=== PATIENT | female | born 1955 | race Caucasian/White ===

== ENCOUNTER 2017-03-08 08:15 | Inpatient (IN) | payer MEDICARE, MEDICAID ==
--- OUTSIDE RECORDS SUMMARY | 2017-03-08 08:26 | XMS REPORT ---
:1955 External Reference #:[id number] Author Organization [employer] Address [address] [address] Phone [phone] Care Team Providers Name Role Phone Trip Castillo MD Primary Care Physician Unavailable Payers Type Date Identification Numbers Payment Provider Subscriber Medicare Primary Policy Number: [id number] Medicare Kelley Paul PayID: [id number] [address] [place] [address] [employer] Policy Number: [id number] Medicaid Kelley Paul Group Name: 1 1 [address] PayID: [id number] [place] [address] Commercial Effective: 2016 Policy Number: [id number] Maikel Paul Expires: 2016 PayID: [id number] [address] [place] [address] Commercial Expires: 2016 Policy Number: Total Care/Scott Paul [id number] [facility] PayID: [id number] [address] [address] [place] [address] Commercial Expires: 2016 Policy Number: Total Care/Scott Paul [id number] [facility] PayID: [id number] [address] [address] [place] [address] Problems Date Description Provider Status Onset: 02/09/2012 Prinzmetal angina Sundeep Jarquin M.D. Active Onset: 02/09/2012 Benign essential hypertension Sundeep Jarquin M.D. Active Onset: 02/09/2012 Type 2 diabetes mellitus Sundeep Jarquin M.D. Active Onset: 02/09/2012 Electrocardiogram abnormal Snudeep Jarquin M.D. Active Onset: 04/24/2012 Coronary arteriosclerosis Sundeep Jarquin M.D. Active Onset: 04/24/2012 Morbid obesity Sundeep Jarquin M.D. Active Onset: 11/09/2013 Chest pain Sundeep Jarquin M.D. Active Onset: 04/29/2015 Essential hypertension Sundeep Jarquin M.D. Active Onset: 07/31/2015 Disturbance in sleep behavior Lasha Michel M.D. 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 Family History Date Family Member(s) Problem(s) Comments General Heart Disease General Cancer Father Skin cancer at age 67 : (2013) Mother due to Crohns (age 73 Years) Onset: (2013) Mother Osteoporosis (age 73 Years) Onset: (2013) Mother Rheumatoid Arthritis Siblings 4 Sister w/clotting issues Brother w/HTN Others alright : (age 82 Paternal Grandfather due to CAD Years) Paternal Uncles [place] at age 35 Social History Type Date Description Comments Marital Status Lives With Family Occupation 2014 Disabled due to RA Cigarette Use Quit - Age 32 ETOH Use Rarely consumes alcohol Smoking Patient is a former smoker Recreational Drug Use Denies Drug Use Smoking Heavy tobacco smoker (more 1PPD for 20 years than 10 cigarettes/day) Daily Caffeine Consumes on average 2 cups of 2-3 regular coffee per day Daily Caffeine Consumes on average 16oz per 3x per week day Exercise Type/Frequency Exercises regularly Exercise Type/Frequency Does cardiac rehab 2 times a week Exercise Type/Frequency Bikes 2 times a week Stationary bike 1x per week, walking 1x per week Allergies, Adverse Reactions, Alerts Date Description Reaction Status Severity Comments 12/24/2004 Tylenol active "sensitivity" (pcp okay with norco, vicodin, etc) 12/24/2004 Augmentin active Upset Stomach 03/03/2011 Simvastatin weakness active 03/03/2011 Pravastatin fatigue active 02/09/2012 Red Rice Yeast myaglias active 06/25/2015 Oxycodone active Medications Medication Date Status Form Strength Qnty SIG Indications Ordering Provider Metoprolol 09/29 Active Tablets ER 25mg 30tab 1 by I20.9 Sundeep Succinate 24HR s mouth F. every day Kerri Jarquin Crestor 09/29 Active Tablets 5mg 30tab 1/2 by Sundeep s mouth F. every day Kerri Jarquin Diovan 07/12 Active Tablets 40mg 90tab 1 by Sundeep s mouth F. every day Kerri Jarquin Hydroxychloroquine 03/07 Active Tablets 200mg 1 by Romel mouth bid Diltiazem CD 10/06 Active Caps ER 120mg 90cap 1 by Sundeep 24HR s mouth in F. the Mauser, morning M.D. and 1 at night Fluoxetine HCL 04/29 Active Capsules 20mg 1 by mouth Ordering every day Provider Mobharoldo 01/07 Active Tablets 7.5mg 60tab 1 by Charlee s mouth april Barreto M.D. Aspir-[address] 11/[address] 81mg 1 by Sundeep mouth F. every day Kerri Jarquin Wellbutrin SR 05/08 Active Tablets ER 150mg 60tab 2 Tablets 12HR s PO qd Visit cc Nitro-Dur 06/19 Active Patches 0.2mg/HR 90uni 1 patch 24HR ts every day F. on in the Mauser, in the M.D. morning, off in the at night Nitrostat 06/19 Active Tablets 0.4mg 25tab one sl Sub s q5min up F. to 3 Mauser, doses as M.D. needed Xopenex HFA 0000 Active Aerosol 45mcg/Act 1Mon 1 puff Unknown /0000 q6h as directed prn Vicodin Active Tablets 5-325mg 180ta 1 q 4hrs Unknown /0000 bs prn Cymbalta Active Caps DR 60mg 30cap 1 po qd Unknown /0000 Part s Novolog 00 Active Solution 100Unit/M 1bott on pump Unknown /0000 L le Methotrexate Active Tablets 2.5mg 6 tabs 1x Unknown /0000 per week Folic Acid Active Tablets 1mg 2 by Unknown /0000 mouth every day Gabapentin Active Capsules 300mg 1-3 by Unknown /0000 mouth at bedtime for pain Glucophage Active Tablets 500mg 2 tablet Unknown /0000 by mouth twice a day Xopenex Active Nebulizer 1.25mg/3M every 4 Unknown /0000 L hours as needed (nebulize r) Vitamin B-12 Active Tablets 2500mcg 1 by Unknown /0000 mouth once a day Omeprazole Active 40mg 1 tablet Unknown / daily Iron Supplement Active 1 tablet Unknown / once a day Clindamycin HCL Active 300mg 1 tablet Unknown /0000 three times a day prior to dental work Dulera Active Aerosol 200-5mcg/ 2 puff Unknown / Act twice a day Cpap Active Device for use Unknown /0000 while sleeping Brilinta Active Tablets 90mg 1 tab by Unknown /0000 mouth twice a day Hydrocodone-Acetami Active Tablets 5-325mg Up to 4 Midura, nop per day MD Trip as needed. Rarely needed Lisinopril 03/05 Hx Tablets 10mg 2 by mouth F. - every day Milka, 07/01 (per pt M.D. /[address] Castillo) hold as of 4.27.17 Lisinopril 01/19 Hx Tablets Unknown 90tab unknown s F. - Milka, 03/05 M.D. /2015 Oxygen 10/06 Hx Misc 1unit 2 l nc at G47.9 s bedtime F. - (no Milka, 09/28 longer M.D. /2016 using) Fluoxetine 05/08 Hx Capsules 10mg 30cap 1 every Other s day Ordering - Provider 04/29 Altace 04/24 Hx Capsules 2.5mg 60cap 1 po qd s F. - Milka, 05/24 M.D. Oxycodone HCL 06/07 Hx Capsules 5mg 60cap 1-2 qid s prn Alexandr - M.D. 04/24 Pravastatin Sodium 11/26 Hx Tablets 10mg 15tab / tab s po qhs F. - Mauser, 03/03 M.D. Simvastatin 06/25 Hx Tablets 5mg 45tab 1 po s three F. - times a Mauser, 09/12 week M.D. Lipitor 06/24 Hx Tablets 5mg 15tab 1 po 3x s week F. - Mauser, 06/25 M.D. Richa 12/23 Hx Tablets 180mg 1 PO qd F. - Mauser, 06/19.D. Paxil 12/22 Hx Tablets 40mg 90tab 1 PO qd s F. - Mauser, 06/19 M.D. Lantus 12/22 Hx Injection 100Units/ as ML directed F. - Mauser, 04/24 M.D. Ativan 12/22 Hx Tablets 0.5mg 1 po qid prn F. - Mauser, 06/19 M.D. Tessalon 12/22 Hx Perles 100mg 90uni 1 po qhs ts prn F. - Mauser, 12/24.D. Flexeril 12/22 Hx Tablets 10mg 30tab 1 tid prn s muscle F. - spasm Mauser, 06/19 M.D. Altace 12/22 Hx Capsules 10mg 30cap 1 PO qd s F. - Mauser, 04/24 M.D. Singulair 12/22 Hx Tablets 10mg 30tab One qd At s hs F. - Mauser, 06/19 M.D. Advair Diskus 12/22 Hx Inhaler 250mcg;50 1 puff mcg bid F. - Mauser, 06/19 M.D. Xopenex 12/22 Hx Solution 1.25mg/3 q4h prn ML F. - Mauser, 06/16 M.D. Diltiazem Extended 12/22 Hx Tablets 120mg 180ta 1 by Sundeep bs mouth F. - twice a Mauser, 10/06 day M.D. Humalog Pen 12/22 Hx Injection 100Units/ as ML Directed F. - Mauser, 06/19 M.D. Darvocet N 100 12/22 Hx Tablets 100mg;650 prn mg F. - Mauser, 06/19 M.D. Nexium 12/22 Hx Capsules 40mg 30cap 1 PO qd s F. - Evelynr, 06/16 M.D. Ativan Hx Tablets 1mg 1-2 po Unknown /0000 tid prn - 01/26 Paxil CR Hx Tablets ER 10mg 1/2 Unknown /0000 24HR Tablet po - qd 11/08 Lipitor Hx Tablets 10mg 30tab 1 po qhs Unknown /0000 s - 06/16 Januvia Hx Tablets 100mg 90tab 1 po qd Unknown /0000 s - 03/03 Lovaza Hx Capsules 1gm 180ca 1 po bid Unknown /0000 ps - 04/28 Clonidine HCL Hx Tablets 0.1mg 60tab 1 po at Unknown /0000 s hs - 07/03 Diclofenac Sodium Hx Tablets [address] 75mg 180ta 1 po bid Unknown /0000 bs prn w - food for 05/12 Glucophage XR Hx Tablets ER 125mg 360ta 1 po bid Unknown /0000 24HR bs - 12/12 Diazepam 00 Hx Tablets 10mg 120ta 1/2 po Unknown /0000 bs tid prn - 04/28 Cyclobenzaprine HCL 0000 Hx Tablets 10mg 30tab 1 po tid Unknown /0000 s prn - 06/24 Kapidex Hx Capsules 30mg 1 qd Unknown /0000 DR - 04/28 Victoza Hx Solution 18mg/3ML 1mon 1.2 mg sc Unknown /0000 qd - 11/08 Red Yeast Rice Hx Tablets 600mg 30tab 1 po qd Unknown /0000 s - 02/08 Ciprofloxacin ER Hx Tablets ER 500mg daily Unknown /0000 24HR - 02/08 Advair Diskus Hx Aerosol 250-50mcg 60uni 1 puff po Unknown /0000 /Dose ts daily - 12/11 Doxycycline Hx Capsules 150mg 20cap 1 PO bid Unknown /0000 s for lyme - 11/08 Gabapentin Hx Capsules 100mg 90cap 1 to 2 po Unknown /0000 s qhs - 12/12 Prednisone Hx Tablets 10mg 30tab 1 by Unknown /0000 s mouth - every day 12/11 Methotrexate Hx Unknown /0000 - 12/12 Mobic Hx Tablets 7.5mg 1 by Unknown /0000 mouth - every day 04/28 Dexilant Hx Capsules 60mg 1 by Unknown /0000 DR mouth - every day 09/29 Diltiazem HCL Hx Tablets 120mg 1 by Unknown /0000 mouth - every day 12/10 Hydrocodone-Acetami Hx Tablets 5-325mg 1 by Unknown nophen /0000 mouth - every 4-6 prn. Sulfamethoxazole/Tr Hx Tablets 800-160mg 1 by Unknown imethoprim DS /0000 mouth - twice a 06/30 day days Medications Administered in Office Medication Date Status Form Strength Qnty SIG Indications Ordering Provider Depomedrol Administered Injection Luis 80MG 015 Kerri Strange Depomedrol Administered Injection Charlee 80MG 014 Kerri Barreto Depomedrol Administered Injection Luis 80MG 012 Kerri Strange Depomedrol Administered Injection Luis 80MG 012 Kerri Strange Vital Signs Date Vital Result Comment 02/16/2017 Height 65 inches 5'5" Weight 249.25 lb with shoes Heart Rate 72 /min BP Systolic Sitting 112 mmHg Lue large cuff BP Diastolic Sitting 56 mmHg Lue large cuff Respiratory Rate 20 /min O2 % BldC Oximetry 98 % On Ra BMI (Body Mass Index) 41.5 kg/m2 12/08/2016 Height 65 inches 5'5" Weight 255.00 lb Heart Rate 72 /min BP Systolic Sitting 124 mmHg LA, large BP Diastolic Sitting 74 mmHg LA, large BMI (Body Mass Index) 42.4 kg/m2 Ejection Fraction 55%-60% echo 07/09/16 11/10/2016 Height 65 inches 5'5" Weight 257.25 lb with shoes Heart Rate 60 /min BP Systolic Sitting 124 mmHg LA lrg cuff BP Diastolic Sitting 64 mmHg LA lrg cuff BMI (Body Mass Index) 42.8 kg/m2 10/15/2016 Height 65 inches 5'5" Weight 261.00 lb with shoes Heart Rate 60 /min BP Systolic Sitting 110 mmHg Lue lg cuff BP Diastolic Sitting 60 mmHg Lue lg cuff BP Systolic Standing 116 mmHg Lue lg cuff BP Diastolic Standing 60 mmHg Lue lg cuff Respiratory Rate 16 /min BMI (Body Mass Index) 43.4 kg/m2 Ejection Fraction 55-60% date 07/09/16 ECHO 09/30/2016 Height 65 inches 5'5" Weight 258.00 lb with shoes Heart Rate 52 /min BP Systolic Sitting 110 mmHg Rue lg cuff BP Diastolic Sitting 60 mmHg Rue lg cuff Respiratory Rate 16 /min BMI (Body Mass Index) 42.9 kg/m2 Ejection Fraction 55-60% date 07/09/2016 ECHO 09/29/2016 Height 65 inches 5'5" Weight 258.00 lb with shoes Heart Rate 64 /min BP Systolic Sitting 140 mmHg LA lrg cuff BP Diastolic Sitting 82 mmHg LA lrg cuff BMI (Body Mass Index) 42.9 kg/m2 Ejection Fraction 57% stress test 09/17/16 08/10/2016 Height 65 inches 5'5" Weight 255.00 lb with shoes Heart Rate 60 /min BP Systolic Sitting 134 mmHg Lue lrg cuff BP Diastolic Sitting 78 mmHg Lue lrg cuff BP Systolic Standing 130 mmHg Lue lrg cuff BP Diastolic Standing 68 mmHg Lue lrg cuff Respiratory Rate 16 /min BMI (Body Mass Index) 42.4 kg/m2 Ejection Fraction 55-60% 07/09/2016-echo 07/08/2016 Height 65 inches 5'5" Heart Rate 64 /min BP Systolic Sitting 132 mmHg LA, large BP Diastolic Sitting 70 mmHg LA, large 07/01/2016 Height 65 inches 5'5" Weight 252.50 lb with shoes Heart Rate 74 /min BP Systolic Sitting 140 mmHg LA lrg cuff BP Diastolic Sitting 78 mmHg LA lrg cuff BP Systolic Standing 138 mmHg la repeat sitting BP Diastolic Standing 72 mmHg la repeat sitting BMI (Body Mass Index) 42.0 kg/m2 Ejection Fraction 55% - 60% echo 05/12/15 03/09/2016 Height 65 inches 5'5" Weight 252.00 lb Heart Rate 73 /min BP Systolic 140 mmHg BP Diastolic 58 mmHg Respiratory Rate 14 /min O2 % BldC Oximetry 98 % BMI (Body Mass Index) 41.9 kg/m2 11/13/2015 Height 65 inches 5'5" Weight 252.00 lb Heart Rate 72 /min BP Systolic Sitting 152 mmHg LA, reg BP Diastolic Sitting 70 mmHg LA, reg BMI (Body Mass Index) 41.9 kg/m2 Ejection Fraction 55%-60% 05/12/15 echo 10/14/2015 Height 65 inches 5'5" Weight 253.00 lb Heart Rate 68 /min BP Systolic 150 mmHg BP Diastolic 74 mmHg Respiratory Rate 14 /min O2 % BldC Oximetry 97 % BMI (Body Mass Index) 42.1 kg/m2 10/07/2015 Height 65 inches 5'5" Weight 253.00 lb with shoes Heart Rate 78 /min BP Systolic Sitting 156 mmHg LA lrg cuff BP Diastolic Sitting 74 mmHg LA lrg cuff BP Systolic Lying Down 148 mmHg la sitting repeat BP Diastolic Lying Down 76 mmHg la sitting repeat BMI (Body Mass Index) 42.1 kg/m2 Ejection Fraction 54% NLM 06/20/15 07/31/2015 Height 65 inches 5'5" Weight 254.00 lb Heart Rate 75 /min BP Systolic Sitting 140 mmHg BP Diastolic Sitting 78 mmHg Respiratory Rate 16 /min O2 % BldC Oximetry 98 % BMI (Body Mass Index) 42.3 kg/m2 Neck Circumference in inches 17 06/25/2015 Height 65 inches 5'5" Weight 247.00 lb w/o shoes Heart Rate 78 /min BP Systolic Sitting 142 mmHg LA lg cuff BP Diastolic Sitting 76 mmHg LA lg cuff BMI (Body Mass Index) 41.1 kg/m2 Ejection Fraction 55-60% echo 05/12/15 04/29/2015 Height 65 inches 5'5" Weight 251.75 lb with shoes Heart Rate 82 /min BP Systolic Sitting 142 mmHg LA, large cuff BP Diastolic Sitting 84 mmHg LA, large cuff BMI (Body Mass Index) 41.9 kg/m2 Ejection Fraction 55% stress echo 05/17/12 05/27/2014 Height 65 inches 5'5" Weight 243.00 lb Pain Level 2 BMI (Body Mass Index) 40.4 kg/m2 03/28/2014 Height 65 inches 5'5" Weight 243.00 lb Pain Level 5 BMI (Body Mass Index) 40.4 kg/m2 01/24/2014 Height 65 inches 5'5" Weight 243.00 lb Pain Level 5 BMI (Body Mass Index) 40.4 kg/m2 01/04/2014 Height 65 inches 5'5" Weight 243.00 lb Pain Level 9 BMI (Body Mass Index) 40.4 kg/m2 12/13/2013 Height 65 inches 5'5" Weight 243.00 lb Heart Rate 74 /min BP Systolic 170 mmHg BP Diastolic 76 mmHg BMI (Body Mass Index) 40.4 kg/m2 11/09/2013 Height 65 inches 5'5" Weight 240.00 lb Heart Rate 60 /min BP Systolic Sitting 130 mmHg right,large BP Diastolic Sitting 84 mmHg right,large BP Systolic Standing 128 mmHg BP Diastolic Standing 84 mmHg BMI (Body Mass Index) 39.9 kg/m2 10/13/2012 Height 65 inches 5'5" Weight 221.00 lb Heart Rate 76 /min BP Systolic 120 mmHg BP Diastolic 70 mmHg BMI (Body Mass Index) 36.8 kg/m2 05/24/2012 Height 65 inches 5'5" Weight 213.00 lb Heart Rate 84 /min BP Systolic Sitting 132 mmHg BP Diastolic Sitting 78 mmHg Respiratory Rate 16 /min BMI (Body Mass Index) 35.4 kg/m2 04/24/2012 Height 65 inches 5'5" Weight 215.00 lb BP Systolic 128 mmHg sitting for 10 minutes prior to EKG BP Diastolic 68 mmHg sitting for 10 minutes prior to EKG BP Systolic Sitting 132 mmHg 82 BP Diastolic Sitting 74 mmHg 82 BP Systolic Standing 132 mmHg 84 BP Diastolic Standing 78 mmHg 84 BP Systolic Lying Down 138 mmHg 78 BP Diastolic Lying Down 66 mmHg 78 BMI (Body Mass Index) 35.8 kg/m2 02/09/2012 Height 65 inches 5'5" Weight 215.00 lb Heart Rate 78 /min BP Systolic 120 mmHg BP Diastolic 66 mmHg Respiratory Rate 16 /min BMI (Body Mass Index) 35.8 kg/m2 05/13/2011 Height 65 inches 5'5" Weight 217.00 lb Heart Rate 77 /min BP Systolic 136 mmHg BP Diastolic 72 mmHg BMI (Body Mass Index) 36.1 kg/m2 03/03/2011 Height 65 inches 5'5" Weight 212.00 lb Heart Rate 90 /min BP Systolic Sitting 102 mmHg BP Diastolic Sitting 72 mmHg BMI (Body Mass Index) 35.3 kg/m2 01/26/2010 Weight 234.00 lb Heart Rate 78 /min BP Systolic Sitting 142 mmHg BP Diastolic Sitting 70 mmHg 07/03/2009 Height 65 inches 5'5" Weight 226.00 lb Heart Rate 92 /min BP Systolic Sitting 142 mmHg BP Diastolic Sitting 80 mmHg BMI (Body Mass Index) 37.6 kg/m2 06/24/2009 Weight 228.00 lb Heart Rate 90 /min BP Systolic 130 mmHg BP Diastolic 70 mmHg Respiratory Rate 16 /min 06/16/2009 Height 65 inches 5'5" Weight 230.00 lb Heart Rate 72 /min BP Systolic 124 mmHg BP Diastolic 70 mmHg BMI (Body Mass Index) 38.3 kg/m2 06/19/2008 Height 65 inches 5'5" Weight 229.00 lb Heart Rate 75 /min BP Systolic Sitting 130 mmHg BP Diastolic Sitting 70 mmHg BP Systolic Standing 120 mmHg BP Diastolic Standing 68 mmHg BMI (Body Mass Index) 38.1 kg/m2 12/29/2004 Height 65 inches 5'5" Heart Rate 80 /min BP Systolic Sitting 124 mmHg BP Diastolic Sitting 80 mmHg 12/24/2004 Height 65 inches 5'5" Weight 232.00 lb Heart Rate 74 /min BP Systolic Sitting 130 mmHg R 138/60 L BP Diastolic Sitting 60 mmHg R 138/60 L BP Systolic Standing 154 mmHg R BP Diastolic Standing 60 mmHg R O2 % BldC Oximetry 98 % BMI (Body Mass Index) 38.6 kg/m2 Results Test Date Test Result H/L Range Note Lipid Profile (Trig/Chol/HDL) 11/17/2016 Triglycerides 54 mg/dL 1 Cholesterol 124 mg/dL 2 HDL Cholesterol 58.8 mg/dL 3 LDL Cholesterol 54 mg/dL 4 CBC Auto Diff 11/17/2016 White Blood Count 4.7 10^3/uL 3.5-10.8 Red Blood Count 3.66 10^6/uL Low 4.0-5.4 Hemoglobin 11.1 g/dL Low 12.0-16.0 Hematocrit 32 % Low 35-47 Mean Corpuscular Volume 88 fL 80-97 Mean Corpuscular Hemoglobin 30 pg 27-31 Mean Corpuscular HGB Conc 34 g/dL 31-36 Red Cell Distribution Width 15 % 10.5-15 Platelet Count 160 10^3/uL 150-450 Mean Platelet Volume 8 um3 7.4-10.4 Abs Neutrophils 2.9 10^3/uL 1.5-7.7 Abs Lymphocytes 0.9 10^3/uL Low 1.0-4.8 Abs Monocytes 0.5 10^3/uL 0-0.8 Abs Eosinophils 0.2 10^3/uL 0-0.6 Abs Basophils 0 10^3/uL 0-0.2 Abs Nucleated RBC 0 10^3/uL Granulocyte % 63.2 % 38-83 Lymphocyte % 19.9 % Low 25-47 Monocyte % 10.6 % High 1-9 Eosinophil % 5.3 % 0-6 Basophil % 1.0 % 0-2 Nucleated Red Blood Cells % 0.1 Comp Metabolic Panel 11/17/2016 Sodium 138 mmol/L 133-145 Potassium 4.5 mmol/L 3.5-5.0 Chloride 106 mmol/L 101-111 Co2 Carbon Dioxide 25 mmol/L 22-32 Anion Gap 7 mmol/L 2-11 Glucose 82 mg/dL 70-100 Blood Urea Nitrogen 16 mg/dL 6-24 Creatinine 1.22 mg/dL High 0.51-0.95 BUN/Creatinine Ratio 13.1 8-20 Calcium 9.1 mg/dL 8.6-10.3 Total Protein 5.8 g/dL Low 6.4-8.9 Albumin 3.4 g/dL 3.2-5.2 Globulin 2.4 g/dL 2-4 Albumin/Globulin Ratio 1.4 1-3 Total Bilirubin 0.40 mg/dL 0.2-1.0 Alkaline Phosphatase 113 U/L High 34-104 Alt 26 U/L 7-52 Ast 18 U/L 13-39 Egfr Non- 45.1 >60 Egfr 58.0 >60 5 Lipid Panel - [facility] 11/17/2016 Creatine Kinase(CK) 81 U/L 10-223 Basic Metabolic Panel 10/08/2016 Sodium 138 mmol/L 133-145 Potassium 4.5 mmol/L 3.5-5.0 Chloride 107 mmol/L 101-111 Co2 Carbon Dioxide 27 mmol/L 22-32 Anion Gap 4 mmol/L 2-11 Glucose 124 mg/dL High 70-100 Blood Urea Nitrogen 16 mg/dL 6-24 Creatinine 1.06 mg/dL High 0.51-0.95 BUN/Creatinine Ratio 15.1 8-20 Calcium 9.2 mg/dL 8.6-10.3 Egfr Non- 53.1 >60 Egfr 68.2 >60 6 Laboratory test finding 10/06/2016 Point of Care Glucose 104 mg/dL High 70 -100 7 Basic Metabolic Panel 10/05/2016 Sodium 134 mmol/L 133-145 Potassium 4.6 mmol/L 3.5-5.0 Chloride 105 mmol/L 101-111 Co2 Carbon Dioxide 25 mmol/L 22-32 Anion Gap 4 mmol/L 2-11 Glucose 226 mg/dL High 70-100 Blood Urea Nitrogen 20 mg/dL 6-24 Creatinine 1.34 mg/dL High 0.51-0.95 BUN/Creatinine Ratio 14.9 8-20 Calcium 8.5 mg/dL Low 8.6-10.3 Egfr Non- 40.5 >60 Egfr 52.1 >60 8 Cath Panel 10/05/2016 Partial Thrombo Time PTT 27.5 seconds 26.0-36.3 CBC Auto Diff 10/05/2016 White Blood Count 5.8 10^3/uL 3.5-10.8 Red Blood Count 3.64 10^6/uL Low 4.0-5.4 Hemoglobin 11.0 g/dL Low 12.0-16.0 Hematocrit 33 % Low 35-47 Mean Corpuscular Volume 89 fL 80-97 Mean Corpuscular Hemoglobin 30 pg 27-31 Mean Corpuscular HGB Conc 34 g/dL 31-36 Red Cell Distribution Width 15 % 10.5-15 Platelet Count 184 10^3/uL 150-450 Mean Platelet Volume 9 um3 7.4-10.4 Abs Neutrophils 3.9 10^3/uL 1.5-7.7 Abs Lymphocytes 1.3 10^3/uL 1.0-4.8 Abs Monocytes 0.5 10^3/uL 0-0.8 Abs Eosinophils 0.1 10^3/uL 0-0.6 Abs Basophils 0.1 10^3/uL 0-0.2 Abs Nucleated RBC 0 10^3/uL Granulocyte % 66.5 % 38-83 Lymphocyte % 21.6 % Low 25-47 Monocyte % 8.5 % 1-9 Eosinophil % 2.3 % 0-6 Basophil % 1.1 % 0-2 Nucleated Red Blood Cells % 0 Inr/Protime 10/05/2016 Inr 0.90 0.89-1.11 Laboratory test finding 07/01/2016 B-Type Natriuretic 168 pg/mL High 9 Peptide BNP Laboratory test finding 07/01/2016 Troponin-I (TnI) 0.02 ng/mL <0.04 10 CRP High Sensitivity 1.91 mg/L 11 CBC Auto Diff 07/01/2016 White Blood Count 4.4 10^3/uL 3.5-10.8 Red Blood Count 3.85 10^6/uL Low 4.0-5.4 Hemoglobin 11.5 g/dL Low 12.0-16.0 Hematocrit 34 % Low 35-47 Mean Corpuscular Volume 88 fL 80-97 Mean Corpuscular Hemoglobin 30 pg 27-31 Mean Corpuscular HGB Conc 34 g/dL 31-36 Red Cell Distribution Width 14 % 10.5-15 Platelet Count 178 10^3/uL 150-450 Mean Platelet Volume 8 um3 7.4-10.4 Abs Neutrophils 2.4 10^3/uL 1.5-7.7 Abs Lymphocytes 1.3 10^3/uL 1.0-4.8 Abs Monocytes 0.5 10^3/uL 0-0.8 Abs Eosinophils 0.2 10^3/uL 0-0.6 Abs Basophils 0.1 10^3/uL 0-0.2 Abs Nucleated RBC 0.01 10^3/uL Granulocyte % 55.2 % 38-83 Lymphocyte % 28.4 % 25-47 Monocyte % 11.0 % High 1-9 Eosinophil % 3.9 % 0-6 Basophil % 1.5 % 0-2 Nucleated Red Blood Cells % 0.1 Laboratory test finding 07/01/2016 Erythrocyte Sed Rate 33 mm/Hr High 0- 30 12 Comp Metabolic Panel 07/01/2016 Sodium 133 mmol/L 133-145 Potassium 4.8 mmol/L 3.5-5.0 Chloride 102 mmol/L 101-111 Co2 Carbon Dioxide 25 mmol/L 22-32 Anion Gap 6 mmol/L 2-11 Glucose 76 mg/dL 70-100 Blood Urea Nitrogen 16 mg/dL 6-24 Creatinine 1.14 mg/dL High 0.51-0.95 BUN/Creatinine Ratio 14.0 8-20 Calcium 9.5 mg/dL 8.6-10.3 Total Protein 6.2 g/dL Low 6.4-8.9 Albumin 3.9 g/dL 3.2-5.2 Globulin 2.3 g/dL 2-4 Albumin/Globulin Ratio 1.7 1-3 Total Bilirubin 0.40 mg/dL 0.2-1.0 Alkaline Phosphatase 129 U/L High 34-104 Alt 27 U/L 7-52 Ast 15 U/L 13-39 Egfr Non- 48.8 >60 Egfr 62.7 >60 13 Surgical Pathology 07/11/2009 Surgical Pathology <SEE 14 NOTE> Becker Putty 1.0 07/10/2009 Mirna Putty 1.0 [id number] <SEE 15 NOTE> Cortical Block 07/10/2009 Cortical Block [id number] <SEE 16 Purple #5 Purple #5 NOTE> CBC With Electronic 06/16/2009 White Blood Count 7.0 CUMM 4.8-10.8 17 Diff Red Cell Count 4.57 CUMM 4.2-5.4 17 Hemoglobin 12.4 g/dL 12.0-16.0 17 Hematocrit 37 % 35-47 17 Mean Corpuscular Volume 80 um3 79-97 17 Mean Corpuscular Hemoglob 27 pg 27-31 17 Mean Corpuscular HGB Cone 34 g/dL 32-36 17 Redcell Distribution WDTH 14 % 10.5-15 17 Platelet Count 241 CUMM 150-450 17 Mean Platelet Volume 8.3 um3 7.4-10.4 17 Gran % 62.3 % 38-83 17 Lymph % 31.4 % 25-47 17 Mononuclear % 4.3 % 1-9 17 Eosinophil % 1.6 % 0-6 17 Basophil % 0.4 % 0-2 17 Abs Lymphs 2.2 1.0-4.8 17 Abs Mononuclear 0.3 0-0.8 17 Absolute Neutrophil Count 4.4 1.5-7.7 17 Abs Eosinophils 0.1 0-0.6 17 Abs Basophils 0 0-0.2 17 Protime 06/16/2009 Inr 0.92 Low 0.97-1.03 17, 18 Protime 10.9 SEC Low 11.5-12.2 17, 19 Laboratory test 06/16/2009 PTT (Aptt) 27.1 25.15-38.53 17, 20 finding Type And Screen 06/16/2009 Patient Blood Type B POSITIVE 17 Antibody Screen NEGATIVE 17 Specimen Discard Date 06/30/09 17, 21 Basic Metabolic Panel 06/16/2009 Sodium 139 mmol/L 135-145 17 Potassium 4.2 mmol/L 3.5-5.0 17 Chloride 103 mmol/L 101-111 17 Co2 (Carbon Dioxide) 26.0 mmol/L 22-32 17 Anion Gap 10.0 mmol/L 2-11 17, 22 Glucose 218 mg/dL High 70-100 17, 23 BUN 13 mg/dL 6-24 17 Creatinine 0.80 mg/dL 0.50-1.40 17 One Over Creatinine 1.20 17 BUN/Creatinine Ratio 16.3 8-20 17 Calcium 9.9 mg/dL 8.1-9.9 17, 24 eGFR Non- 80.1 > 60 17 eGFR 96.9 > 60 17, 25 1 Desirable <150 Borderline high 150-199 High 200-499 Very High >500 2 Desirable <200 Borderline high 200-239 High >239 3 Low <40 Desirable: 40-60 High: >60 4 Desirable: <100 mg/dL Near Optimal: 100-129 mg/dL Borderline High: 130-159 mg/dL High: 160-189 mg/dL Very High: >189 mg/dL 5 Because ethnic data is not always readily available, this report includes an eGFR for both -Americans and non- Americans. The National Kidney Disease Education Program (NKDEP) does not endorse the use of the MDRD equation for patients that are not between the ages of 18 and 70, are , have extremes of body size, muscle mass, or nutritional status, or are non- or non-. According to the National Kidney Foundation, irrespective of diagnosis, the stage of the disease is based on the level of kidney function: Stage Description GFR(mL/min/1.73 m(2)) 1 Kidney damage with normal or decreased GFR 90 2 Kidney damage with mild decrease in GFR 60-89 3 Moderate decrease in GFR 30-59 4 Severe decrease in GFR 15-29 5 Kidney failure <15 (or dialysis) 6 Because ethnic data is not always readily available, this report includes an eGFR for both -Americans and non- Americans. The National Kidney Disease Education Program (NKDEP) does not endorse the use of the MDRD equation for patients that are not between the ages of 18 and 70, are , have extremes of body size, muscle mass, or nutritional status, or are non- or non-. According to the National Kidney Foundation, irrespective of diagnosis, the stage of the disease is based on the level of kidney function: Stage Description GFR(mL/min/1.73 m(2)) 1 Kidney damage with normal or decreased GFR 90 2 Kidney damage with mild decrease in GFR 60-89 3 Moderate decrease in GFR 30-59 4 Severe decrease in GFR 15-29 5 Kidney failure <15 (or dialysis) 7 Artificial Stone Setter: [id number] 8 Because ethnic data is not always readily available, this report includes an eGFR for both -Americans and non- Americans. The National Kidney Disease Education Program (NKDEP) does not endorse the use of the MDRD equation for patients that are not between the ages of 18 and 70, are , have extremes of body size, muscle mass, or nutritional status, or are non- or non-. According to the National Kidney Foundation, irrespective of diagnosis, the stage of the disease is based on the level of kidney function: Stage Description GFR(mL/min/1.73 m(2)) 1 Kidney damage with normal or decreased GFR 90 2 Kidney damage with mild decrease in GFR 60-89 3 Moderate decrease in GFR 30-59 4 Severe decrease in GFR 15-29 5 Kidney failure <15 (or dialysis) 9 >100 to <200 pg/mL: likely compensated congestive heart failure (CHF) 200 to 400 pg/mL: likely moderate CHF >400 pg/mL: likely moderate to severe CHF 10 99th percentile=0.04 ng/mL Troponin results at [facility] and [facility] are not interchangeable. 11 Low risk: <1.00 Average risk: 1.00-3.00 High risk: >3.00 12 STANDING ORDER VALID 04/14/16-10/12/16 Q 3 MONTHS 13 Because ethnic data is not always readily available, this report includes an eGFR for both -Americans and non- Americans. The National Kidney Disease Education Program (NKDEP) does not endorse the use of the MDRD equation for patients that are not between the ages of 18 and 70, are , have extremes of body size, muscle mass, or nutritional status, or are non- or non-. According to the National Kidney Foundation, irrespective of diagnosis, the stage of the disease is based on the level of kidney function: Stage Description GFR(mL/min/1.73 m(2)) 1 Kidney damage with normal or decreased GFR 90 2 Kidney damage with mild decrease in GFR 60-89 3 Moderate decrease in GFR 30-59 4 Severe decrease in GFR 15-29 5 Kidney failure <15 (or dialysis) 14 ---- RUN DATE: 07/15/09 [facility] NMI LIVE PAGE 1 RUN TIME: 1432 Specimen Inquiry RUN USER: INTERFACE -- [id number] Status: DIS IN Re07/11/09 Age/Sex: 54/F Unit#: [id number] [facility] -- Specimen: [id number] Spec Date: 07/11/[address]: Dillon Alonzo MD Spec Type: SURGICAL P Received: 07/14/0934 Copies to: SPECIMEN C5-6 DISC HISTORY PRE-OP DIAGNOSIS: C5-6 herniated disc GROSS DESCRIPTION The specimen is received in formalin labelled Kelley Yusuf BraxtonPaul, C5-6 Disc, and consists of multiple irregular meyer-bryant to pink fibrous fragments measuring 2.2 x 1.1 x 0.7 cm. in aggregate. Jewelry Racker section, one cassette. DIAGNOSIS Intervertebral disc, C5-6, discectomy: Intervertebral disc material with myxoid degeneration. Signed Electronically by: RENE SEQUEIRA MD 07/15/09 1428 -- -- DEPARTMENT OF PATHOLOGY, [address] [place] [address] [facility] Permit #[id number] Rene Sequeira M.D. Director Gunner Pickett M.D. Bailiff Dir patel -- 15 [id number] PUTTY 1.0 TRANSFUSED 07/11/09 1115 16 [id number] COR PURPLE #5 TRANSFUSED 07/11/095 17 AA 06/24 18 Recommended INR for Patients on Oral Anticoagulants Prophylaxis 2.0 - 3.0 Treatment of thrombosis 2.0 - 3.0 Prevention of embolism 2.0 - 3.0 Prevention of embolism from prosthetic heart valves 2.5 - 3.5 19 DIAGNOSIS,TREATMENT,AND THERAPY MUST BE BASED ON THE INR VALUE ALONE. 20 PLEASE NOTE NEW REFERENCE RANGE EFFECTIVE 08. 21 PREADMISSION TESTING SAMPLES FOR BLOOD BANK WILL BE HELD FOR 14 DAYS FROM THE DATE OF COLLECTION *IF* THE FOLLOWING CRITERIA ARE MET: 1) THE PATIENT HAS *NOT* BEEN IN THE LAST 3 MONTHS. 2) THE PATIENT HAS *NOT* BEEN TRANSFUSED IN THE LAST 3 MONTHS. PREADMISSION TESTING SAMPLES WILL *NOT* BE HELD FOR 14 DAYS FROM PATIENTS WHO IN THE LAST 3 MONTHS: 1) HAVE BEEN 2) HAVE BEEN TRANSFUSED THESE PATIENTS *MUST* BE COLLECTED WITHIN 3 DAYS OF THE SURGERY DATE. 22 Anion gap measurement may be of limited value in the presence of any alkalosis, especially in a combined acid base disorder. . 23 Note change in reference range as of 10/26/07. The change was based on recommendations from the [place] [employer]. 24 Please note change in reference range effective 07 . 25 Because ethnic data is not always readily available, this report includes an eGFR for both -Americans and non- Americans. The National Kidney Disease Education Program (NKDEP) does not endorse the use of the MDRD equation for patients that are not between the ages of 18 and 70, are , have extremes of body size, muscle mass, or nutritional status, or are non- or non-. According to the National Kidney Foundation, irrespective of diagnosis, the stage of the disease is based on the level of kidney function: Stage Description GFR(mL/min/1.73 m(2)) 1 Kidney damage with normal or decreased GFR 90 2 Kidney damage with mild decrease in GFR 60-89 3 Moderate decrease in GFR 30-59 4 Severe decrease in GFR 15-29 5 Kidney failure <15 (or dialysis) Procedures Date CPT Code Description Status 11/10/2016 20458 EKG Tracing & Interpretation Completed 10/06/2016 47466 Cath PLMT&NJX L Ventriculog Img S&I Completed 09/29/2016 15198 EKG Tracing & Interpretation Completed 09/17/2016 56237 Treadmill Interp/Report Only Completed 09/17/2016 18367 Stress Test Supervsn W/Out I/R Completed 07/09/2016 99184 ECHO Transthoracic, Real-Time 2D With Doppler And Color Completed Flow 07/01/2016 44560 EKG Tracing & Interpretation Completed 10/07/2015 83151 EKG Tracing & Interpretation Completed 09/19/2015 36043 Polysomnography Sleep Staging 4+ Parameters Completed 06/20/2015 93069 Treadmill Interp/Report Only Completed 06/20/2015 76066 Stress Test Supervsn W/Out I/R Completed 05/12/2015 25225 ECHO Transthoracic, Real-Time 2D With Doppler And Color Completed Flow 04/29/2015 31214 EKG Tracing & Interpretation Completed 03/28/2014 Inject/Drain Joint/Bursa Major Completed 12/13/2013 Inject/Drain Joint/Bursa Major Completed 11/09/2013 66044 EKG Tracing & Interpretation Completed 10/13/2012 34299 EKG Tracing & Interpretation Completed 05/24/2012 88458 EKG Tracing & Interpretation Completed 05/18/2012 85958 Stress ECHO Interpretation/Report Hospital Completed 05/18/2012 75755 Treadmill Interp/Report Only Completed 05/18/2012 88771 Stress Test Supervsn W/Out I/R Completed 05/10/2012 63924 ECHO Stress Test Incl Perf Contiuous ekg Monitoring Completed W/Phys Superv 05/10/2012 33376 ECHO Stress Test Incl Perf Contiuous ekg Monitoring Completed W/Phys Superv 04/24/2012 60443 EKG Tracing & Interpretation Completed 02/09/2012 98974 EKG Tracing & Interpretation Completed 08/03/2011 82246 Inject/Drain Joint/Bursa Major Completed 06/30/2011 48387 Arthroscopy,Shoulder Decompression Of Subacromial Space Completed W/Acromio 06/30/2011 75811 Arthroscopy,Shoulder Decompression Of Subacromial Space Completed W/Acromio 06/30/2011 85973 Arthroscopy Shoulder Debridement Limited Completed 06/30/2011 93201 Arthroscopy Shoulder Debridement Limited Completed 05/19/2011 34338 ECHO Stress Test Incl Perf Contiuous ekg Monitoring Completed W/Phys Superv 05/13/2011 86123 EKG Tracing & Interpretation Completed 03/25/2011 84220 Rad Shoulder Comp, Min. 2 Views Completed 03/25/201162761 Inject/Drain Joint/Bursa Major Completed 03/03/2011 19372 EKG Tracing & Interpretation Completed 01/26/2010 13976 EKG Tracing & Interpretation Completed 07/11/2009 36816 Discectomy,W/Decomp SP Cord/Nerve Root;Cervical Single Completed Interspace 07/11/2009 06925 Anterior Instrumentation 2-3 Vertebral Segments Completed 07/11/2009 18687 Arthrodesis, Anterior Cervical C2 And Below Completed 07/11/200976301 Allograft For Spine Surgery,Structural (Bone Bank) Completed 06/25/2009 71366 Selective Coronary Angioplasty Completed 06/25/2009 28385 S/I/R Inj Proc Vent And Or Atrial Completed 06/25/2009 81794 Coronary Angiography Completed 06/25/2009 50306 Inj Proc LFT Vent/LFT Atrl Angio Completed 06/25/2009 09027 Left Heart Catheterization Completed 06/24/2009 52230 EKG Tracing & Interpretation Completed 06/20/2009 43385 Stress Test Supervsn W/Out I/R Completed 06/20/2009 71019 Treadmill Interp/Report Only Completed 06/19/2009 25387 Treadmill Interp/Report Only Completed 06/19/2009 76737 Stress Test Supervsn W/Out I/R Completed 06/16/2009 53465 EKG Tracing & Interpretation Completed 08/19/2008 82082 ECHO Transthoracic, Real-Time 2D With Doppler And Color Completed Flow 07/08/2008 99779 Treadmill Interp/Report Only Completed 07/08/2008 85083 Stress Test Supervsn W/Out I/R Completed 07/01/2008 48806 ECHO Stress Test Incl Perf Contiuous ekg Monitoring Completed W/Phys Superv 06/24/2008 05664 EKG Tracing & Interpretation Completed 06/19/2008 60344 EKG Tracing & Interpretation Completed 01/06/2005 84262 Color Doppler Completed 01/06/2005 03944 Pulse Doppler & Continuous Wave Completed 01/06/2005 37245 Echocardiogram Completed 01/06/2005 65998 Holter Monitor Completed 12/24/2004 84657 EKG Tracing & Interpretation Completed Encounters Type Date Location Provider CPT E/M Dx Office Visit 12/08/2016 9:00a [facility] STANISLAV Dyer 33339PWC R06.02 I25.10 E78.00 I25.82 Office Visit 11/10/2016 3:20p [facility] Sundeep Jarquin, 86585 I25.10 Kerri E78.00 I10 I34.0 R06.00 I49.5 I45.10 R94.31 Office Visit 10/15/2016 9:30a [facility] STANISLAV Boudreaux 07926 I25.10 E78.00 I10 Office Visit 09/30/2016 10:00a [facility] Of Raghu Palomino 60623 I34.0 Danny Lozada M.D. I10 E78.00 I25.10 Office Visit 09/29/2016 9:20a [facility] Sundeep Jarquin M.D. 45241 I20.9 I34.0 I10 E78.00 E66.9 E11.9 Office Visit 08/10/2016 9:30a [facility] Of STANISLAV Dyer 46355QNE I25.10 Danny I34.0 I10 R06.00 Office Visit 07/08/2016 9:00a [facility] Nurse Visit 04553 I10 Office Visit 07/01/2016 10:00a [facility] Sundeep Jarquin 29923 G47.33 Kerri I10 I25.10 G47.9 R06.00 Z68.41 Office Visit 03/09/2016 3:30p [facility] [place] [address] G47.33 Services Of [facility] E66.01 Z68.41 Office Visit 11/13/2015 9:30a [facility] STANISLAV Dyer 18447 G47.33 I10 I25.10 E66.01 Office Visit 10/14/2015 8:30a [facility] Shruthi Serrano 86887 G47.33 Services Of [facility] KASSANDRA RN, [facility]- G47.14 E66.01 Z68.41 Office Visit 10/07/2015 8:40a [facility] Sundeep Jarquin M.D. 71787 G47.9 I10 I25.10 E66.9 Office Visit 07/31/2015 8:00a [facility] Lasha Michel, 31534 G47.9 Services Of Danny Manning I10 I25.10 E66.9 Office Visit 06/25/2015 9:30a [facility] STANISLAV Dyer 31137 I10 I34.0 I36.1 E11.9 G47.30 I25.10 R06.00 Office Visit 04/29/2015 11:20a [facility] Sundeep Jarquin M.D. 14242 I10 I20.1 E66.01 E11.9 G47.30 Office Visit 05/27/2014 10:30a [facility] Of Eleanor Cook 56462 726.13 C.M.A. RPA-C Office Visit 03/28/2014 8:45a [facility] Of Luis Strange M.D. 91183 726.13 C.M.A. Office Visit 01/24/2014 3:45p [facility] Strange M.D. 58834 726.13 Abelardo 726.10 Office Visit 01/04/2014 1:30p [facility] Frandy Mckeon 77672 726.2 Of Chandrakant Carmen Office Visit 12/13/2013 1:00p [facility] Charlee Barreto M.D. 10271 726.2 Of Abelardo 716.91 726.10 Office Visit 11/09/2013 1:20p [facility] Sundeep Jarquin M.D. 72862 401.1 414.01 413.1 278.01 786.50 Office Visit 10/13/2012 3:20p [facility] Sundeep Jarquin M.D. 65814 401.1 414.01 413.1 278.01 Office Visit 05/24/2012 9:40a [facility] Sundeep Jarquin M.D. 62998 401.1 414.01 786.50 413.1 Office Visit 05/18/2012 11:30a [facility] Sundeep Jarquin 80681 786.50 M.DGay 786.09 414.01 Office Visit 05/08/2012 1:30p [facility] Nurse Visit 95299 401.1 Office Visit 04/24/2012 4:00p [facility] Sundeep Jarquin M.D. 42324 401.1 414.01 278.01 Office Visit 02/09/2012 9:00a [facility] Sundeep Jarquin M.D. 87110 413.1 401.1 250.00 794.31 Office Visit 11/16/2011 9:00a [facility] Luis Strange M.D. 33283 726.2 C.M.A. Office Visit 05/13/2011 11:00a [facility] Sundeep Jarquin 46134 414.01 M.DGay 413.1 401.1 250.00 794.31 Office Visit 05/06/2011 1:45p [facility] Luis Strange M.D. 31006 726.2 C.M.A. Office Visit 03/25/2011 8:00a [facility] Luis Strange M.D. 93993 726.2 C.M.A. Office Visit 03/03/2011 9:20a [facility] Sundeep Jarquin, 29610 414.01 MGayDGay 413.1 401.1 250.00 Office Visit 04/06/2010 1:30p [facility] Dillon Rivera, 76738 729.5 Of Danny Manning Office Visit 01/26/2010 3:00p [facility] Sundeep Zabala 96308 414.01 Kerri Jarquin 401.1 413.1 250.00 Office Visit 11/13/2009 9:00a [facility] Dillon TishaGay Rivera, 00024 722.0 Of Danny Manning Office Visit 07/03/2009 1:20p [facility] Raghu Palomino 13475 414.01 Kerri Lozada 401.1 Office Visit 06/25/2009 12:00p [facility] Claraybluis Lozada, 66236 414.01 M.DGay 401.1 794.30 V72.81 Office Visit 06/24/2009 1:20p [facility] Claraybluis Lozada, 30398 414.01 MArie 413.1 250.00 Office Visit 06/16/2009 11:30a [facility] Sundeep Jarquin, 54373 414.01 MGayDGay 413.1 250.00 272.2 Office Visit 06/04/2009 9:30a [facility] Of Dillon Phong Rivera, 51705 722.0 Danny Manning 354.0 Office Visit 05/19/2009 2:45p [facility] Of Dillon TishaGay Rivera 06322 354.0 Danny Manning 722.0 Office Visit 06/24/2008 3:40p [facility] Sundeep Jarquin, 14200 250.00 M.DGay 414.01 786.59 Office Visit 07/14/2006 9:45a [facility] Of Dillon Rivera, 87542 354.0 Danny Manning 722.0 356.9 Office Visit 07/04/2006 4:00p [facility] Dillon GilesGay Nicole, 27422 782.0 Of [facility] Kerri Office Visit 12/24/2004 9:40a [facility] Sundeep Jarquin, 17207 780.2 M.DGay 250.00 414.01 401.1 Plan of Care Future Appointment(s):02/15/2018 10:30 am - Shruthi Serrano DNP, RN, MANAGEMENT ENGINEER- at [facility]04/18/2017 2:20 pm - Sundeep Jarquin M.D. at [facility]02/16/2017 - Shruthi Serrano DNP, RN, MANAGEMENT ENGINEER-BCG47.33 Obstructive sleep apnea (adult) (pediatric)Comments:On CPAP auto AHI 8.2/ hourFollow up:1 yearRecommendations:Continue PAP device, Benefitting and compliant with treatment. If you have any sleepiness while driving you MUST avoid operating a vehicle or machinery. If you have difficulty with your equipment, or need to replace your mask or hoses, please contact your homecare agency. A weight change of 20 pounds or more may have an effect on your equipment; if you are experiencing problems please call for an appointment. If you have any further questions, please call the [facility] at .K94.41 Body mass index (BMI) 40.0-44.9, adultRecommendations:Continue with exercise and weight loss efforts
[2017-03-08 09:08] LABS: ABS Basophils 0.1 10^3/ul (0-0.2); ABS Eosinophils 0.2 10^3/ul (0-0.6); ABS Lymphocytes 0.7 10^3/ul (1.0-4.8); ABS Monocytes 0.4 10^3/ul (0-0.8); ABS Nucleated RBC 0 10^3/ul; Eosinophil % 3.8 % (0-6); Hematocrit 33 % (35-47); Hemoglobin 11.1 g/dl (12.0-16.0); Lymphocyte % 16.8 % (25-47); Mean Corpuscular HGB Conc 34 g/dl (31-36); Mean Corpuscular Hemoglobin 30 pg (27-31); Mean Corpuscular Volume 88 fL (80-97); Mean Platelet Volume 7 um3 (7.4-10.4); Nucleated Red Blood Cells % 0.1; Platelet Count 167 10^3/ul (150-450); Red Blood Count 3.71 10^6/ul (4.0-5.4); Red Cell Distribution Width 15 % (10.5-15); White Blood Count 4.3 10^3/ul (3.5-10.8)
--- NOTE | 2017-03-08 09:20 | RAD ---
Indication: Chest pain. Single frontal view of the chest performed at 0905 hours was reviewed. Comparison is made with previous exam dated April 11, 2012. No mediastinal shift is noted. Heart is of normal size and configuration. Lung mojica appear clear. IMPRESSION: NO ACTIVE CARDIOPULMONARY DISEASE IS NOTED.
[2017-03-08 09:31] LABS: EGFR Non-African American 51.4 (>60)
[2017-03-08] MEDS ORDERED: Aspirin TAB* 325 MG PO ONE (10:26)
[2017-03-08] MEDS ORDERED: Aspirin EC Low Dose* 81 MG TAB.EC ONE (10:35)
[2017-03-08] MEDS ORDERED: Aspirin EC Low Dose* 81 MG TAB.EC PO ONE (10:38)
[2017-03-08] MEDS ORDERED: Levalbuterol HFA INHALER* 1 PUFF MDI INH PRN (11:58)
[2017-03-08] MEDS ORDERED: Dextrose 50% Syringe 50 ML* 25 GM/50 ML SYRINGE IV PUSH PRN (12:01)
[2017-03-08] MEDS ORDERED: Magnesium Sulfate 2 GM IV* 2 GM/50 ML BAG IVPB ONE (12:50)
[2017-03-08] MEDS ORDERED: Insulin ASPART (NF) 1 UNIT SUBCUT ONE (13:00)
[2017-03-08] MEDS ORDERED: INSULIN ASPART 100 UNIT/ML SUBCUT SCH (14:00)
[2017-03-08] MEDS ORDERED: [UNRECOGNIZED DRUG - OTHER] SUBCUT SCH (14:00)
[2017-03-08] MEDS: Heparin VIAL(*) 5000 UNITS/ML VIAL (FIVE THOUSAND) SUBCUT SCH ×2 (14:02→21:51)
--- NOTE | 2017-03-08 15:24 | HP ---
ATTENDING PHYSICIAN ADDENDUM NOW INCLUDED ON THIS REPORT CC: Dr. Trip Castillo * HISTORY AND PHYSICAL: DATE OF ADMISSION: 03/08/17 PRIMARY CARE PROVIDER: Dr. Trip Castillo. ATTENDING PHYSICIAN: Dr. Celina Monroe * (dictated by Nidhi Lopes NP). CHIEF COMPLAINT: Chest pain with associated diaphoresis and shortness of breath. HISTORY OF PRESENT ILLNESS: Ms. Paul is a 61-year-old female with past medical history significant for CAD, status post VT and stent placement, obstructive sleep apnea, hypertension, hyperlipidemia, fibromyalgia, rheumatoid arthritis, type 1 diabetes mellitus, anxiety, depression, who presented to the emergency room with complaints of 2 days of intermittent chest heaviness. The patient states that she has been having headaches and congestion for the last approximately a week. She states over the last 2 days, she has had 2 episodes of chest discomfort that she describes as pressure like sitting on her chest in addition to intermittent left shoulder pain, diaphoresis, shortness of breath with exertion. She denies any fever, chills. She has also had nausea. She denies any urinary symptoms. She denies any diarrhea. The patient reports bilateral shoulder bursitis, but states that the discomfort she has been having in her left shoulder is different than her typical shoulder discomfort. She follows with Dr. Jarquin with Cardiology. Due to her persistent symptoms, she decided to present to the emergency room for further evaluation of her symptoms. While in the emergency room, the patient received full dose aspirin. She had an EKG showing a sinus bradycardia and ST depression in leads V2 to 6 and lead 2. She had a chest x-ray showing no cardiopulmonary disease. She has had two troponins that were 0.00. Her other labs were unremarkable. Due to her history of CAD and stent placement in October, the hospitalists were asked to evaluate the patient for admission. PAST MEDICAL HISTORY: 1. Coronary artery disease, status post VT with stent placement. 2. Obstructive sleep apnea, uses CPAP at home. 3. Arthritis. 4. Fibromyalgia. 5. Diabetes mellitus type 1. 6. Anxiety and depression. 7. Hyperlipidemia. 8. Hypertension. 9. Rheumatoid arthritis. 10. Bilateral shoulder bursitis. PAST SURGICAL HISTORY: 1. Status post left shoulder surgery. 2. Status post left knee arthroscopy. 3. Status post Dupuytren's contracture release on the right. 4. Status post section. 5. Status post tubal ligation. 6. Status post cardiac stent placement x1 in October 2016. 7. Status post bilateral carpal tunnel release. 8. Status post C4 to 5 discectomy. 9. Status post hysterectomy. HOME MEDICATIONS: Include: 1. Methotrexate 15 mg oral weekly on . 2. Diltiazem 120 mg oral every evening. 3. Wellbutrin SR 300 mg oral every morning. 4. Dulera 200/5 two puffs inhalation twice daily. 5. Meloxicam 7.5 mg oral daily. 6. Cushing 5/325 one tablet oral every 6 hours as needed for pain. 7. Neurontin 300 to 600 mg oral daily at bedtime. 8. Metformin 1000 mg oral twice daily. 9. Fluoxetine 20 mg oral daily. 10. Brilinta 90 mg oral twice daily. 11. Omeprazole 40 mg oral every morning. 12. Metoprolol succinate 25 mg oral daily. 13. Rosuvastatin 2.5 mg oral daily. 14. Plaquenil 200 mg oral twice daily. 15. Folic acid 2 mg oral daily. 16. Vitamin B12 500 mcg oral daily. 17. Aspirin 81 mg oral daily. 18. Valsartan 40 mg oral daily. 19. Nitroglycerin 0.4 mg sublingual every 5 minutes as needed for chest pain. 20. Ferrous gluconate 27 mg oral daily. 21. NovoLog insulin via insulin pump. 22. Diltiazem CD 240 mg oral every morning. 23. Betamethasone DIP 0.05% apply topical 3 times daily as needed for rash. 24. Xopenex HFA inhaler 2 puffs inhalation every 4 hours as needed for shortness of breath or wheeze. ALLERGIES: AUGMENTIN causes a GI upset, STATINS cause muscle aches and ACETAMINOPHEN causes nausea. FAMILY HISTORY: The patient reports her paternal grandfather passed from heart disease and she had a paternal uncle who had MIs at young age. She denies family history of diabetes. There is leukemia in her family. Her father had lymph node cancer. Grandfather had a esophageal cancer and she had a cousin with a history of pancreatic cancer. SOCIAL HISTORY: The patient is a former smoker, she quit 29 years ago. She has a 17-year smoking history, which she smoked half a pack to 2 packs a day. She rarely drinks alcohol. Denies recreational drug use. She lives with her . Her , Santosh Paul, will be her surrogate decision maker in the event she is unable to make decisions for herself. REVIEW OF SYSTEMS: I performed a 14-point review of systems. All the pertinent positives and negatives are mentioned in the history of present illness. The remaining review of systems are negative. PHYSICAL EXAMINATION GENERAL APPEARANCE: The patient is alert, pleasant, appears to be in no acute distress. VITAL SIGNS: Temperature 97.4, heart rate 55, respiratory rate 15, O2 sat 99% on room air, blood pressure 105/78. HEENT: Normocephalic, atraumatic. Pupils are equal and reactive to light. Extraocular movements are intact. RESPIRATORY: There is no accessory muscle use. The lungs are clear to auscultation bilateral. CARDIOVASCULAR: Regular rate and rhythm. No murmurs, rubs, or gallops heard. ABDOMEN: Soft, nontender, nondistended. Bowel sounds present x4. EXTREMITIES: There is no lower extremity edema. DP and PT pulses are 2+ and symmetric. MUSCULOSKELETAL: There is no clubbing or cyanosis noted. The patient exhibits good strength in all extremities. NEUROLOGIC: The patient is alert and oriented x4. Cranial nerves II through XII are grossly intact. PSYCHOLOGICAL: The patient is calm and cooperative. SKIN: There are no rashes or abnormalities seen. DIAGNOSTIC STUDIES/LAB DATA: Sodium 133, potassium 4.0, chloride 103, CO2 24, BUN 17, creatinine 1.09, glucose 182, magnesium 1.7. Troponin 0.00 x2. White blood cell count 4.3, hemoglobin 11.1, hematocrit 33, platelet count 168. EKG shows a sinus bradycardia and a rate of 54. This EKG is similar to previous EKG from 04/11/12 with the exception that the patient has a new slight ST depressions in leads V2 to 6 and lead 2. Chest x-ray from today. Radiologist impression, no active cardiopulmonary disease. IMPRESSION: Ms. Paul is a 61-year-old female with past medical history significant for coronary artery disease, status post myocardial infarction with stent placement, obstructive sleep apnea, uses a CPAP, fibromyalgia, arthritis, type 1 diabetes mellitus, anxiety, depression, hyperlipidemia, hypertension, and rheumatoid arthritis, who presents to the emergency room with 2 days of intermittent chest pressure. She will be admitted as an observation for chest pain, rule out acute coronary syndrome. ASSESSMENT/PLAN: 1. Chest pain, rule out acute coronary syndrome: The patient's first 2 troponins are 0.00. She currently denies any chest discomfort. She does have new ST depressions in her EKG. The plan will be to check one more troponin. Monitor on telemetry, get a nuclear exercise stress test in the morning in addition to an echocardiogram. The patient has a SHELLY score of 3. 2. Hypomagnesia: We will give the patient magnesium replacement today, recheck her labs in the morning. 3. History of coronary artery disease: The patient will be continued on her home Brilinta, aspirin, statin, and metoprolol. 4. Diabetes mellitus: The patient will have glucose checked a.c. and h.s. She will be continued on Humalog via her insulin pump. The patient's last hemoglobin A1c in June 2016 was 5.8. 5. Obstructive sleep apnea: The patient will be continued on CPAP. We will provide her with a hospital CPAP. 6. Hypertension: The patient will be continued on her home diltiazem, metoprolol, valsartan. 7. Hyperlipidemia: We will continue the patient on statin. We will check a fasting lipid panel in the morning. 8. Rheumatoid arthritis: We will continue the patient on methotrexate weekly and Plaquenil. 9. Fluids, electrolytes, and nutrition: The patient will be on a heart- healthy diet, n.p.o. after midnight for stress testing in the morning. 10. Code status: Full code. 11. DVT prophylaxis: The patient is at moderate risk, will have subcu heparin. 12. Disposition: Observation. TIME SPENT: Time for this admission was approximately 60 minutes, greater than half of that was spent with the patient and family discussing medications, past medical history, and the events leading up to her arrival today, performing a physical examination. Reviewed by NIDHI LOPES, SIMIN-Melissa 03/08/17 [id number] ADDENDUM: Kelley Paul is a 61-year-old female with history of coronary artery disease and cardiac catheterization and stenting in February 2017, who presents complaining of chest pain. The patient's workup so far is unremarkable, but she is going to be placed on overnight observation with a stress test in the morning. We will also obtain echocardiogram. For further details of the patient's presentation and plan, please see history and physical dictated by Nidhi Pike on 03/08/17, with which I agree. CELINA MONROE MD [id number]/CPS #: [id number]/CPS #: [id number] [place]
[2017-03-08] MEDS ORDERED: Insulin LISPRO* 1 UNITS UNIT SUBCUT SCH (16:30)
--- NOTE | 2017-03-08 17:36 | ED ---
Brijesh Serna Angela, scribed for Cristiana Carroll MD on 03/08/17 at 0940 . HPI Chest Pain - HPI Summary HPI Summary: This pt is a 61 y/o female, accompanied by her and family, presenting to [facility] c/o chest heaviness for the last day. Pt reports she additionally had diaphoresis, nausea, and shoulder pain (for a couple of days). She reports this episode happened twice within the past 24 hours. Pt checked her blood glucose level and it was 150. She currently c/o chest pressure/heaviness, and is described "like someone is sitting on it. Pt additionally c/o headache and congestion. Pt has taken Benadryl and used CPAP with some relief. She states she bruises easily. PMHx includes MT with a stent placement, arthritis, fibromyalgia, diabetes. Pt notes her LE swelling has decreased since stent was placed. Pt's night cleaner is Dr. Jarquin. Pt is treated for anxiety and depression. Denies SI thoughts or plan. - History of Current Complaint Chief Complaint: EDChestPainROMI Time Seen by Provider: 03/08/17 08:42 Hx Obtained From: Patient Onset/Duration: Started Days Ago, Still Present Timing: Lasting Days Current Severity: Moderate Pain Intensity: 5 Pain Scale Used: 0-10 Numeric Chest Pain Location: Diffuse Chest Pain Radiates: Yes Chest Pain Radiates To:: Shoulder Character: Heaviness Aggravating Factor(s): Nothing Alleviating Factor(s): Nothing Associated Signs and Symptoms: Positive: Chest Pain, Diaphoresis, Nausea, Other : - shoulder pain - Allergy/Home Medications Allergies/Adverse Reactions: Allergies Allergy/AdvReac Type Severity Reaction Status Date / Time Amoxicillin [From Augmentin] AdvReac Intermediate GI Upset Verified 05/20/15 13: 38 Clavulanic Acid AdvReac Intermediate GI Upset Verified 05/20/15 13:38 [From Augmentin] Statins AdvReac Intermediate Muscle Ache Verified 05/20/15 13:38 Acetaminophen AdvReac Mild Nausea Verified 05/20/15 13:38 Home Medications: Home Medications Betamethasone Dip 0.05% ON(NF) [Betamethasone Dipr 0.05% OINT(NF)] 1 applic TOPICAL TID PRN 03/08/17 [History Confirmed 03/08/17] Cyanocobalamin TAB* [Vitamin B12 TAB*] 500 mcg PO DAILY 03/08/17 [History Confirmed 03/08/17] Diltiazem CD CAP* [Cardizem CD CAP*] 240 mg PO QAM 03/08/17 [History Confirmed 03/08/17] Ferrous Gluconate [Iron] 27 mg PO DAILY 03/08/17 [History Confirmed 03/08/17] HYDROcodone/ACETAMIN 5-325 MG* [[place] 5-325 TAB*] 1 tab PO Q6H PRN 03/08/17 [ History Confirmed 03/08/17] Metformin ER (NF) 1,000 mg PO BID 03/08/17 [History Confirmed 03/08/17] Metoprolol Succinate XL TAB* [Toprol XL TAB*] 25 mg PO DAILY 03/08/17 [History Confirmed 03/08/17] Rosuvastatin (NF) [Crestor (NF)] 2.5 mg PO DAILY 03/08/17 [History Confirmed 04/24] Ticagrelor* [Brilinta*] 90 mg PO BID 03/08/17 [History Confirmed 03/08/17] PMH/Surg Hx/FS Hx/Imm Hx Endocrine/Hematology History: Reports: Hx Anticoagulant Therapy - ASA 81 mg qd, Hx Diabetes Denies: Hx Thyroid Disease Cardiovascular History: Reports: Hx Angina, Hx Coronary Artery Disease, Hx Hypercholesterolemia, Hx Hypertension Denies: Hx Myocardial Infarction, Hx Pacemaker/ICD, Hx Valvular Heart Disease Respiratory History: Reports: Hx Asthma Denies: Hx Chronic Obstructive Pulmonary Disease (COPD) History: Denies: Hx Renal Disease Neurological History: Denies: Hx Dementia, Hx Seizures Psychiatric History: Denies: Hx Panic Disorder, Hx Substance Abuse - Surgical History Surgery Procedure, Year, and Place: CARPAL TUNNEL - DOROTHY. C4-5 DISCETOMY. HYSTERECTOMY. TUBAL LIGATION 1977. C SECTION 1976. DUPATRINS CONTRASTURE- HAND- Rt. LT KNEE - ARTHROSCOPIC. Lt KNEE. Lt SHOULDER - Immunization History Date of Tetanus Vaccine: UNK Date of Influenza Vaccine: Fall 2011 Infectious Disease History: No Infectious Disease History: Reports: Hx Hepatitis - unsure, Hx of Known/ Suspected MRSA Denies: Hx Human Immunodeficiency Virus (HIV), Traveled Outside the [place] in Last 30 Days - Family History Known Family History: Positive: Cardiac Disease, Hypertension - Social History Alcohol Use: Rare Substance Use Type: Reports: None Hx Tobacco Use: Yes Smoking Status (MU): Former Smoker Type: Cigarettes Have You Smoked in the Last Year: No Review of Systems Positive: Skin Diaphoresis. Negative: Fever Negative: Blurred Vision, Diplopia ENT: Other - congestion Negative: Sore Throat, Ear Ache Positive: Chest Pain Positive: Nausea. Negative: Abdominal Pain, Vomiting, Other - constipation, bloody stools Negative: dysuria, hematuria Musculoskeletal: Other - shoulder pain Negative: Other - back pain Positive: Bruising Positive: Headache All Other Systems Reviewed And Are Negative: No Physical Exam - Summary Physical Exam Summary: Appearance: Alert, conversive, nontoxic appearing Skin: Warm, dry, no mottling, no rashes, no contusions. Multiple bruises noted to LE. HEENT: EOMI, PERRL, moist mucous membranes Neck: No masses on the neck, supple Respiratory: Clear to auscultation, breath sounds present, no rales, no rhonchi , no wheezes Cardiovascular: RRR, pulses are symmetrical in both lower and upper extremities Abdomen: Soft, non-tender Bowel Sounds: Present Musculoskeletal: No CVA tenderness, no obvious deformity, moving all extremities in a grossly normal manner Neurological: A&Ox3, CN II-XII Intact, moving all extremities symmetrically Psychiatric: Normal affect and mood Triage Information Reviewed: Yes Vital Signs On Initial Exam: Initial Vitals Temp Pulse Resp BP Pulse Ox 97.4 F 55 17 129/58 100 03/08/17 08:24 03/08/17 08:24 03/08/17 08:24 03/08/17 08:24 03/08/17 08:24 Vital Signs Reviewed: Yes - Sandra Coma Scale Coma Scale Total: 15 Diagnostics - Vital Signs Vital Signs Temp Pulse Resp BP Pulse Ox 03/08/17 08:24 97.4 F 55 17 129/58 100 - Laboratory Lab Results: Lab Results 03/08/17 03/08/17 03/08/17 Range/Units 08:58 08:58 08:58 WBC 4.3 (3.5-10.8) 10^3/ul RBC 3.71 L (4.0-5.4) 10^6/ul Hgb 11.1 L (12.0-16.0) g/dl Hct 33 L (35-47) % MCV 88 (80-97) fL MCH 30 (27-31) pg MCHC 34 (31-36) g/dl RDW 15 (10.5-15) % Plt Count 167 (150-450) 10^3/ul MPV 7 L (7.4-10.4) um3 Neut % (Auto) 69.2 (38-83) % Lymph % (Auto) 16.8 L (25-47) % [place] % (Auto) 8.8 (1-9) % Eos % (Auto) 3.8 (0-6) % Baso % (Auto) 1.4 (0-2) % Absolute Neuts (auto) 3.0 (1.5-7.7) 10^3/ul Absolute Lymphs (auto) 0.7 L (1.0-4.8) 10^3/ul Absolute Monos (auto) 0.4 (0-0.8) 10^3/ul Absolute Eos (auto) 0.2 (0-0.6) 10^3/ul Absolute Basos (auto) 0.1 (0-0.2) 10^3/ul Absolute Nucleated RBC 0 10^3/ul Nucleated RBC % 0.1 Sodium 133 (133-145) mmol/L Potassium 4.0 (3.5-5.0) mmol/L Chloride 103 (101-111) mmol/L Carbon Dioxide 24 (22-32) mmol/L Anion Gap 6 (2-11) mmol/L BUN 17 (6-24) mg/dL Creatinine 1.09 H (0.51-0.95) mg/dL Est GFR ( Amer) 66.1 (>60) Est GFR (Non-Af Amer) 51.4 (>60) BUN/Creatinine Ratio 15.6 (8-20) Glucose 182 H (70-100) mg/dL Calcium 9.3 (8.6-10.3) mg/dL Magnesium 1.7 L (1.9-2.7) mg/dL Total Bilirubin 0.50 (0.2-1.0) mg/dL AST 19 (13-39) U/L ALT 26 (7-52) U/L Alkaline Phosphatase 120 H (34-104) U/L Troponin I 0.00 (<0.04) ng/mL B-Natriuretic Peptide 72 ( - 100) pg/mL Total Protein 6.1 L (6.4-8.9) g/dL Albumin 3.6 (3.2-5.2) g/dL Globulin 2.5 (2-4) g/dL Albumin/Globulin Ratio 1.4 (1-3) TSH Pending Result Diagrams: 03/08/17 08:58 03/08/17 08:58 Lab Statement: Any lab studies that have been ordered have been reviewed, and results considered in the medical decision making process. - Radiology Chest XR Xray Interpretation: No Acute Changes - IMPRESSION: No active cardiopulmonary disease is noted. Dr. Carroll has reviewed this radiology report. Radiology Interpretation Completed By: Radiologist - EKG 08:23 Cardiac Rate: Bradycardia EKG Rhythm: Sinus Bradycardia - at 54 bpm EKG Interpretation: Prolonged QRSD. Normal QTc. Normal ST-T waves. Re-Evaluation - Re-Evaluation First Eval Re-Evaluation Time: 10:37 Comment: I spoke with the pt and family regarding admission. Pt and family agree with the admission disposition. Chest Pain Course/Dx - Course Course Of Treatment: This pt is a 61 y/o female, accompanied by her and family, presenting to [facility] c/o chest heaviness for the last day. Pt reports she additionally had diaphoresis, nausea, and shoulder pain (for a couple of days). She reports this episode happened twice within the past 24 hours. Chest XR is negative. I discussed pt care with Dr. Torres, night cleaner, who recommends admission to hospitalist. [10:35] I discusse pt's case with Dr. Monroe , hospitalist, who has agreed to admit the pt. - Diagnoses Provider Diagnoses: Chest pain - Provider Notifications Discussed Care Of Patient With: Geraldo Torres Time Discussed With Above Provider: 10:28 Instructed by Provider To: Other - I discussed pt care with Dr. Torres night cleaner, who recommends admission to hospitalist. [10:35] I discusse pt's case with Dr. Monroe, hospitalist, who has agreed to admit the pt. Discharge - Discharge Plan Condition: Stable Disposition: ADMITTED TO [facility] The documentation as recorded by the Brijesh chambers Angela accurately reflects the service I personally performed and the decisions made by , Cristiana Carroll MD.
[2017-03-08] MEDS: HYDROcodone/ACETAMIN 5-325 MG* 1 TAB PO PRN (17:42)
[2017-03-08] MEDS: Diltiazem CD CAP* 120 MG PO SCH (17:43)
[2017-03-08] MEDS: Hydroxychloroquine TAB* 200 MG PO SCH (18:36)
--- NOTE | 2017-03-08 19:57 | HP ---
HISTORY AND PHYSICAL:* ADDENDUM: Kelley Paul is a 61-year-old female with history of coronary artery disease and cardiac catheterization and stenting in February 2017, who presents complaining of chest pain. The patient's workup so far is unremarkable , but she is going to be placed on overnight observation with a stress test in the morning. We will also obtain echocardiogram. For further details of the patient's presentation and plan, please see history and physical dictated by Lachelle Pike on 03/08/17, with which I agree. [id number]/[facility] #: [id number] [place]TD[place]
[2017-03-08] MEDS ORDERED: diPHENhydraMINE PO* 25 MG PO PRN (20:39)
[2017-03-08] MEDS ORDERED: Gabapentin CAP(*) 300 MG PO SCH (21:00)
[2017-03-08] MEDS: Mometasone/Formoter 200/5 MDI INH SCH (21:02)
[2017-03-08] MEDS: Ticagrelor* 90 MG TAB PO SCH (21:51)
[2017-03-08] MEDS: Gabapentin CAP(*) 300 MG PO SCH (21:51)
[2017-03-09] MEDS: Heparin VIAL(*) 5000 UNITS/ML VIAL (FIVE THOUSAND) SUBCUT SCH ×3 (06:09→22:44)
[2017-03-09] MEDS ORDERED: Regadenoson* 0.4 MG/5 ML SYRINGE ONE (08:23)
[2017-03-09] MEDS ORDERED: Folic Acid TAB* 1 MG PO SCH (09:00)
[2017-03-09] MEDS ORDERED: Cyanocobalamin TAB* 500 MCG PO SCH (09:00)
[2017-03-09] MEDS ORDERED: CMCS: Meloxicam(NF) 7.5 MG TAB PO SCH (09:00)
--- NOTE | 2017-03-09 10:04 | RAD ---
HISTORY: Chest pain, status post cardiac stenting, hypertension, shortness of breath, hyperlipidemia, obesity, diabetes COMPARISONS: September 17, 2016 TECHNIQUE: A 1 day stress/rest myocardial perfusion study was performed, with pharmacologic stress. The stress portion was monitored by Dr. Irvin. Gated SPECT imaging was performed, without CT-based attenuation correction secondary to patient physical limitation. DOSE: Stress: Technetium 99m tetrofosmin, 25.6 millicuries, injected at 8:55 AM on March 09, 2017 Rest: Technetium 99m tetrofosmin, 10.2 millicuries, injected at 50 2:00 AM on March 09, 2017 Pharmacologic agent: Lexiscan FINDINGS: CARDIAC MONITORING: No EKG evidence of ischemia with stress EF: 61% TID: 1.09 MOTION: Normal motion, with normal wall thickening. PERFUSION: There is a partially reversible moderate sized perfusion defect of the lateral wall, with a small reversible defect of the mid anterior wall. This is similar to the previous examination. OTHER: None IMPRESSION: SMALL REVERSIBLE DEFECT OF THE ANTERIOR WALL WITH PARTIALLY REVERSIBLE DEFECT OF THE LATERAL WALL SUGGESTIVE OF MIXED AREAS OF ISCHEMIA AND INFARCTION. ASSESSMENT: INTERMEDIATE RISK. Based on imaging criteria from ACC/AHA 2002. Guideline Update for the Management of Patient's with Chronic Stable Angina, table 23. Noninvasive Risk Stratification. CPT II Codes: 3570F
[2017-03-09] MEDS: Hydroxychloroquine TAB* 200 MG PO SCH ×2 (10:09→17:35)
[2017-03-09] MEDS: buPROPion SR TAB.SR* 150 MG PO SCH (10:10)
[2017-03-09] MEDS: Aspirin EC Low Dose* 81 MG TAB.EC PO SCH (10:10)
[2017-03-09] MEDS: Diltiazem CD CAP* 240 MG PO SCH (10:11)
[2017-03-09] MEDS: FLUoxetine CAP* 20 MG PO SCH (10:11)
[2017-03-09] MEDS: Ticagrelor* 90 MG TAB PO SCH ×2 (10:16→22:42)
[2017-03-09] MEDS: Valsartan TAB* 40 MG PO SCH (10:16)
[2017-03-09] MEDS: Metoprolol Succinate XL TAB* 25 MG PO SCH (10:16)
[2017-03-09] MEDS: HYDROcodone/ACETAMIN 5-325 MG* 1 TAB PO PRN (10:16)
[2017-03-09] MEDS: Omeprazole CAP* 20 MG PO SCH (10:17)
[2017-03-09] MEDS: CMCS: Rosuvastatin (NF) 5 MG TAB PO SCH (10:17)
[2017-03-09] MEDS: Mometasone/Formoter 200/5 MDI INH SCH ×2 (10:49→20:31)
[2017-03-09] MEDS ORDERED: Perflutren Lipid Microsphere* 3 ML VIAL ONE (14:13)
--- NOTE | 2017-03-09 14:26 | PN ---
Cardiology Progress Note Date of Service: 03/09/17 - CC: chest pain See complete dictated note. Pt seen today for CP and abnormal stress. Concern for crescendo angina, with ST depression on ECG, reversible ischemia in the distribution of the circumflex on nuclear study, the location that she was stented last October. BP and lipids look well controlled. Reviewed films with interventional cardiology, plan is to cath in AM. Discussed with the patient and her . -chronic anemia noted. -No changes made in medications at this time, if rest CP then nitrates recommended. -Dr Leo will be seeing patient later today.
--- NOTE | 2017-03-09 15:36 | ECHO ---
Patient: NICOLETTE BARTLETT [facility] Rec#: [id number] : 1955 Date: 03/09/2017 Age: 61y Height: 165.1 cm / 65.0 in Weight: 110.22 kg / 242.9 lbs Sex: F BSA: 2.15 Room#: [facility] Admit Date#: 03/08/2016 Type: Inpatient Referring: Celina Monroe MD Reading: Hazel Amaya MD Electronic Sensing Equipment Assembler: Gisel Meyer,BISICS,RDMS CC: Trip Castillo MD Transthoracic Echocardiogram Indication: CP BP: 129/58 HR: 65 Rhythm: NSR Findings History: CAD, PCI, HTN, MARY, DM, former smoker Technical Comments: The study is technically limited due to poor apical windows. Left Ventricle: The left ventricular chamber size is normal. Mild concentric left ventricular hypertrophy is observed. There is a focal wall motion abnormality present.Dyskinesis near the apex of the inferior wall on 2 chamber view and hypokinesis at the base of the posterior wall on 3 chamber view, these abnormalities also seen on short axis views (with images obtained with echo contrast). Left ventricular systolic function is at the lower limits of normal. The estimated ejection fraction is 50-55%. Abnormal left ventricular diastolic function is observed. Left Atrium: The left atrium is slightly dilated. Upper limit of normal. Right Ventricle: The right ventricular chamber size and systolic function are within normal limits. Right Atrium: The right atrial cavity size is normal. Aortic Valve: The aortic valve is trileaflet. Systolic excursion of the aortic valve is normal. There is a trace of aortic regurgitation. There is no evidence of aortic stenosis. Mitral Valve: There is a trace of mitral regurgitation. There is no evidence of mitral stenosis. Tricuspid Valve: The tricuspid valve leaflets are normal. There is mild tricuspid regurgitation. There is evidence of mild pulmonary hypertension. Pulmonic Valve: The pulmonic valve structure is not well visualized. Pericardium: There is no significant pericardial effusion. Aorta: The aortic root appears normal. There is no dilatation of the aortic arch. Pulmonary Artery: The main pulmonary artery is not well visualized. Venous: The inferior vena cava is not visualized. Contrast: Definity was used to optimize study. A total of 3.5 ml was used Conclusions The study is technically limited due body habitus. Mild concentric left ventricular hypertrophy. Dyskinesis near the apex of the inferior wall and hypokinesis at the base of the posterior wall. The estimated ejection fraction is 50-55%. Abnormal left ventricular diastolic function is observed. The right ventricular chamber size and systolic function are within normal limits. There is a trace of aortic regurgitation. There is a trace of mitral regurgitation. There is mild tricuspid regurgitation. There is evidence of mild pulmonary hypertension: 39 mmHg. Compared with prior study of July 09, 2016, no longer see dilatation of the aorta, focal wall motion abnormalities newly seen with echo contrast, overall ventricular and valvular function not significantly changed. Elevated PA pressure newly noted. Measurements Name Value Normal Range RVIDd (AP) 2D 2.4 cm (0.9 - 2.6) RVDdMajor (2D) 3.5 cm (2.2 - 4.4) RAd ISD 4CH 4.7 cm (3.4 - 4.9) RA (A4C)W 3.8 cm (2.9 - 4.6) IVSd (2D) 1.3 cm (0.6 - 1) LVPWd (2D) 1.3 cm (0.6 - 1) LVIDd (2D) 4.8 cm (3.6 - 5.4) LVIDs (2D) 3.8 cm - LV FS (2D) 22 % (25 - 45) Aortic Annulus 2.3 cm (1.4 - 2.6) Ao root diameter (2D) 3 cm (2.1 - 3.5) Ascending Ao 3.3 cm (2.1 - 3.4) Aortic arch 2.9 cm (1.8 - 3.4) LA dimension (AP) 2D 4.1 cm (2.3 - 3.8) LAd ISD 4CH 5.5 cm (2.9 - 5.3) LA ISD 4CH W 4.3 cm (2.5 - 4.5) Name Value Normal Range LA ESV SP 4CH (A/L) 66.2 ml - LA ESV SP 2CH (A/L) 77.79 ml - LA ESV BP (A/L) 73.52 ml - LA ESV BP (A/L) index 34 ml/m2 - LA ESV SP 4CH (MOD) 61.94 ml - LA ESV SP 2CH (MOD) 74.9 ml - Name Value Normal Range MV E-wave Vmax 0.6 m/sec - MV deceleration time 195 msec - MV A-wave Vmax 0.7 m/sec - MV E:A ratio 0.9 ratio - LV septal e' Vmax 0.04 m/sec - LV lateral e' Vmax 0.05 m/sec - LV E:e' septal ratio 15 ratio - LV E:e' lateral ratio 12 ratio - Name Value Normal Range AV Vmax 1.4 m/sec - AV VTI 35.2 cm - AV peak gradient 8 mmHg - AV mean gradient 4.7 mmHg - LVOT Vmax 1 m/sec - LVOT VTI 25.1 cm - LVOT peak gradient 4 mmHg - LVOT mean gradient 2.3 mmHg - OLIVERIO Vmax 0.9 m/sec - Name Value Normal Range TR Vmax 3 m/sec - TR peak gradient 36 mmHg - RAP 3 mmHg - RVSP 39 mmHg - IVC diameter 1.6 cm - Name Value Normal Range PV Vmax 0.9 m/sec - PV peak gradient 3.2 mmHg -
[2017-03-09 16:18] LABS: INR 0.94 (0.77-1.02)
[2017-03-09 16:48] LABS: EGFR Non-African American 50.3 (>60)
[2017-03-09] MEDS: Diltiazem CD CAP* 120 MG PO SCH (17:35)
--- NOTE | 2017-03-09 17:35 | PN ---
Subjective Date of Service: 03/09/17 Interval History: troponins negative. Still with some SOB and chest pressure. Nuclear stress test intermediate risk with some anterior wall reversible defect. Cardiology consulted and planned [facility] 03/10. Has insulin pump. Objective Active Medications: Hydrocodone Bitart/Acetaminophen ([place] 5-325 Tab*) 1 tab PO Q6H PRN PRN Reason: PAIN Last Admin: 03/09/17 10:16 Dose: 1 tab Aspirin (Aspirin Ec Low Dose*) 81 mg PO DAILY [facility] Last Admin: 03/09/17 10:10 Dose: 81 mg Bupropion HCl (Wellbutrin Sr Tab*) 300 mg PO QAM [facility] Last Admin: 03/09/17 10:10 Dose: 300 mg Cyanocobalamin (Vitamin B12 Tab*) 500 mcg PO DAILY [facility] Last Admin: 03/09/17 10:11 Dose: 500 mcg Dextrose (D50w Syringe 50 Ml*) 12.5 gm IV PUSH .FOR FS < 60 - SS PRN PRN Reason: FS < 60 Diazepam (Valium Tab(*)) 5 mg PO ONCE ONE Stop: 03/10/17 05:01 Diltiazem HCl (Cardizem Cd Cap*) 120 mg PO QPM [facility] Last Admin: 03/08/17 17:43 Dose: 120 mg Diltiazem HCl (Cardizem Cd Cap*) 240 mg PO QAM [facility] Last Admin: 03/09/17 10:11 Dose: 240 mg Diphenhydramine HCl (Benadryl Po*) 25 mg PO BEDTIME PRN PRN Reason: Allergy Symptoms Last Admin: 03/08/17 21:50 Dose: 25 mg Diphenhydramine HCl (Benadryl Po*) 25 mg PO ONCE ONE Stop: 03/10/17 05:01 Fluoxetine HCl (Prozac Cap*) 20 mg PO DAILY [facility] Last Admin: 03/09/17 10:11 Dose: 20 mg Folic Acid (Folvite Tab*) 2 mg PO DAILY [facility] Last Admin: 03/09/17 10:12 Dose: 2 mg Gabapentin (Neurontin Cap(*)) 600 mg PO BEDTIME [facility] Last Admin: 03/08/17 21:51 Dose: 600 mg Heparin Sodium (Porcine) (Heparin Vial(*)) 5,000 units SUBCUT Q8HR [facility] Last Admin: 03/09/17 15:41 Dose: 5,000 units Hydroxychloroquine Sulfate (Plaquenil Tab*) 200 mg PO BID WITH MEALS [facility] Last Admin: 03/09/17 10:09 Dose: 200 mg Sodium Chloride (Ns 0.9% 1000 Ml*) 1,000 mls @ 125 mls/hr IV .per rate [facility] Insulin Aspart (Novolog (Nf)) 0 unit SUBCUT .SEE INSTRUCTIONS [facility] PRN Reason: Protocol Last Admin: 03/08/17 17:43 Dose: 1.5 unit Levalbuterol HCl (Xopenex Hfa Inhaler*) 2 puff INH Q4HR PRN PRN Reason: SOB/WHEEZING Meloxicam (Mobic(Nf)) 7.5 mg PO DAILY [facility] Last Admin: 03/09/17 10:13 Dose: 7.5 mg Methotrexate (Methotrexate Tab*) 15 mg PO Th@0900 [facility] Metoprolol Succinate (Toprol Xl Tab*) 25 mg PO DAILY [facility] Last Admin: 03/09/17 10:16 Dose: 25 mg Mometasone Furoate/Formoterol Fumar (Dulera 200/5 Mdi*) 2 puff INH BID [facility] Last Admin: 03/09/17 10:49 Dose: 2 puff Omeprazole (Prilosec Cap*) 40 mg PO QAM [facility] Last Admin: 03/09/17 10:17 Dose: 40 mg Rosuvastatin Calcium (Crestor (Nf)) 2.5 mg PO DAILY [facility] PRN Reason: Protocol Last Admin: 03/09/17 10:17 Dose: 2.5 mg Ticagrelor (Brilinta*) 90 mg PO BID [facility] Last Admin: 03/09/17 10:16 Dose: 90 mg Valsartan (Diovan Tab*) 40 mg PO DAILY [facility] Last Admin: 03/09/17 10:16 Dose: 40 mg Vital Signs - 8 hr 03/09/17 15:47 Respiratory 20 Rate Oxygen Devices in Use Now: Nasal Cannula Appearance: NAD. a little anxious. Eyes: No Scleral Icterus, PERRLA Ears/Nose/Mouth/Throat: NL Teeth, Lips, Gums, Mucous Membranes Moist Neck: NL Appearance and Movements; NL JVP Respiratory: Symmetrical Chest Expansion and Respiratory Effort, Clear to Auscultation Cardiovascular: NL Sounds; No Murmurs; No JVD, RRR Abdominal: NL Sounds; No Tenderness; No Distention, No Hepatosplenomegaly, - - insulin pump Extremities: No Edema, No Clubbing, Cyanosis Skin: No Rash or Ulcers, No Nodules or Sclerosis Neurological: Alert and Oriented x 3, NL Muscle Strength and Tone Result Diagrams: 03/08/17 08:58 03/09/17 15:39 Additional Lab and Data: Laboratory Results - last 24 hr 03/08/17 03/08/17 03/09/17 19:32 22:41 03:01 INR (Anticoag Therapy) Sodium Potassium Chloride Carbon Dioxide Anion Gap BUN Creatinine Est GFR ( Amer) Est GFR (Non-Af Amer) BUN/Creatinine Ratio Glucose POC Glucose (mg/dL) 201 H 160 H Calcium Troponin I 0.00 Triglycerides Cholesterol LDL Cholesterol HDL Cholesterol 03/09/17 03/09/17 03/09/17 05:33 07:35 11:22 INR (Anticoag Therapy) Sodium Potassium Chloride Carbon Dioxide Anion Gap BUN Creatinine Est GFR ( Amer) Est GFR (Non-Af Amer) BUN/Creatinine Ratio Glucose POC Glucose (mg/dL) 150 H 250 H Calcium Troponin I Triglycerides 95 Cholesterol 152 LDL Cholesterol 74 HDL Cholesterol 59.3 03/09/17 03/09/17 03/09/17 15:39 15:39 16:52 INR (Anticoag Therapy) 0.94 Sodium 136 Potassium 4.0 Chloride 104 Carbon Dioxide 25 Anion Gap 7 BUN 17 Creatinine 1.11 H Est GFR ( Amer) 64.7 Est GFR (Non-Af Amer) 50.3 BUN/Creatinine Ratio 15.3 Glucose 84 POC Glucose (mg/dL) 202 H Calcium 9.1 Troponin I Triglycerides Cholesterol LDL Cholesterol HDL Cholesterol Microbiology and Other Data: Microbiology 03/08/17 14:35 Nasal Nasal Screen MRSA (PCR)([facility]) - Final Mrsa Negative Assess/Plan/Problems-Billing Assessment: 61 yo female PMH CAD s/p recent LCx stent (brilinta, aspirin), DMT1 on insulin pump, MARY, FM, RA, HTN presenting with SOB, chest pressure. Intermediate nuclear stress test with anterior ischemia/infarct. Planned LHC with Dr. Leo 03/10. - Patient Problems (1) CAD (coronary artery disease) Current Visit: Yes Status: Acute Code(s): I25.10 - ATHSCL HEART DISEASE OF [place] CORONARY ARTERY W/O ANG PCTRS SNOMED Code(s): 28878389 Comment: reversible anterior ischemia. [facility] with Dr. Leo tomorrow. troponins negative. nitrates if chest pain. ECHO EF 50-55% with regional wall motion abnormalities. Last cath October [address] Larose of [place], try to obtain records. continue brilinta 90mg and aspirin 81mg daily including before cath. states has not missed any doses. (2) Diabetes mellitus type 1 Current Visit: Yes Status: Acute Comment: continue insulin pump. POCT (3) HTN (hypertension) Current Visit: Yes Status: Acute Code(s): I10 - ESSENTIAL (PRIMARY) HYPERTENSION SNOMED Code(s): 83389014 Comment: continue valsartan 40; diltazaem 240 qam /120 qpm (4) Fibromyalgia Current Visit: Yes Status: Acute Code(s): M79.7 - FIBROMYALGIA SNOMED Code (s): 121739983 Comment: gabapentin 600mg qhs (5) Rheumatoid arthritis Current Visit: Yes Status: Acute Code(s): M06.9 - RHEUMATOID ARTHRITIS, UNSPECIFIED SNOMED Code(s): 18061128 Comment: continue plaquenil and methotrexate (6) MARY (obstructive sleep apnea) Current Visit: Yes Status: Acute Code(s): G47.33 - OBSTRUCTIVE SLEEP APNEA ( ADULT) (PEDIATRIC) SNOMED Code(s): 77414713 Comment: cpap qhs (7) Anxiety and depression Current Visit: Yes Status: Acute Code(s): F41.8 - OTHER SPECIFIED ANXIETY DISORDERS SNOMED Code(s): 743143749 Comment: continue wellbutrin and prozac Status and Disposition: medicine, now inpatient for [facility]. Attending: Raúl Valdez
[2017-03-09] MEDS: Gabapentin CAP(*) 300 MG PO SCH (22:40)
--- NOTE | 2017-03-09 23:41 | CONS ---
CC: Sundeep Jarquin MD; Trip Castillo MD * CARDIOLOGY CONSULTATION: DATE OF CONSULT: 03/09/17 REASON FOR CONSULT: Chest pain and abnormal stress test. HISTORY OF PRESENT ILLNESS: Mrs. Paul is a 61-year-old woman followed by Dr. Sundeep Jarquin with known 2-vessel coronary artery disease, who underwent stenting in October 2016, details to follow. The patient stated that after her stent she has never really felt normal, with some shortness of breath. She then got a cold a week ago and has been getting progressively more short of breath even before the cold. Then, 2 days prior to admission, the patient was in the kitchen in the evening, talking with her daughter- in-law and acutely developed shortness of breath, profound diaphoresis , and chest discomfort that radiated to her left shoulder. She took a nitroglycerin and cleared it, but the next day she awoke, again was just walking to the kitchen and had reproduction of the symptoms. These are reminiscent of the symptoms she had when she presented in October with angina and she presented to the emergency room. In the ER, her EKG was abnormal with mild ST depression in the precordial leads. Her troponins were normal. The patient underwent a chemical stress test today, which shows a reversible defect in the lateral wall and normal ventricular function. PAST MEDICAL HISTORY: 1. Coronary artery disease, her most recent cardiac catheterization was in October 2016. The diagnostic cath at [facility] showed severe 95% to 99% occlusion in the mid circ and OM branch occlusion and complete occlusion of the right coronary artery. I do not have the [place] cath report, but she underwent drug-eluting stent to the circumflex and the right coronary artery was unable to be opened. 2. Type 1 diabetes. 3. Hypertension. 4. Dyslipidemia. 5. Obstructive sleep apnea. 6. Obesity. 7. Fibromyalgia. 8. Rheumatoid arthritis. 9. Shoulder bursitis. 10. Chronic anemia for 40 years. PAST SURGICAL HISTORY: Includes: 1. Left shoulder surgery. 2. Left knee arthroscopy. 3. Dupuytren's contracture, right. 4. section. 5. Tubal ligation. 6. Carpal tunnel release bilaterally. 7. C4-5 diskectomy. 8. Hysterectomy. MEDICATIONS: Current inpatient medications include: 1. [place] 1 tab p.o. q.6 hours p.r.n. pain. 2. Aspirin 81 mg a day. 3. Subcutaneous heparin. 4. Brilinta 90 mg b.i.d. 5. Diovan 40 mg a day. 6. Toprol-XL 25 mg a day. 7. Cardizem CD 240 mg a day in the morning and 120 mg at night. 8. Wellbutrin 300 mg a day. 9. Vitamin B12. 10. Benadryl q.h.s. p.r.n. 11. Prozac 20 mg a day. 12. Neurontin 600 mg q.h.s. 13. Plaquenil 200 mg b.i.d. 14. Mobic 7.5 mg a day. 15. Methotrexate 15 mg weekly. 16. Dulera 2 puffs b.i.d. 17. Crestor 2.5 mg a day. 18. Prilosec 40 mg a day. 19. Xopenex inhaler 2 puffs q.4 hours p.r.n. 20. NovoLog insulin. ALLERGIES: AUGMENTIN (GI), STATINS (myalgias), TYLENOL (nausea). FAMILY HISTORY: Significant for coronary disease in paternal grandfather. A paternal uncle had heart attacks at a young age. Leukemia runs in her family. Her father had lymph node cancer. She had a grandfather with esophageal cancer and a cousin with pancreatic cancer. SOCIAL HISTORY: The patient is with a supportive . Smoked for 17 years, but has quit 30 years ago. No significant alcohol use or abuse. REVIEW OF SYSTEMS: Positive for her cold symptoms of a week, progressive exertional dyspnea, but no orthopnea or PND. Appetite has been plus or minus. No recent medications. No productive cough. No hematuria, dysuria, change in bowel or bladder habits. All other 14-point for review of systems were negative and unremarkable, other than those mentioned in the history of present illness, recent chest pain, diaphoresis and shoulder pain. PHYSICAL EXAM: The patient is 5 feet 5 inches, weighs 247 pounds with BMI of 41. Vital Signs: On arrival to the emergency room, blood pressure 129/58, pulse 55, afebrile, sats are 100% on room air, and respiratory rate 17. Current vitals: Blood pressure 118/49, pulse of 55, respiratory rate is 20, oxygen saturation on room air 98%, and temperature 98.4. General Appearance: Overweight, somewhat older woman, lying at 20 degrees in bed, in no acute distress. Psychologically, pleasant and cooperative. Neurologically, awake, alert, and oriented to person, place and time. Cranial nerves II through XII intact. Grossly normal sensory and motor function in the upper and lower extremities, gait not checked, she moves normally in bed. Skin: Warm, dry. No cyanosis or rashes appreciated. HEENT: Pupils are equal and round. Mucous membranes moist. Neck: Thick from obesity, but no appreciable increase in JVP. No lymphadenopathy or thyromegaly. Good carotid pulses without audible bruits. Breath sounds were clear with good effort. No wheezes, rales, or rhonchi. Coronary: S1, S2 regular. Very soft systolic murmur heard in the left sternal border. Abdomen: Overweight, but flat and nondistended. Active bowel sounds. No epigastric discomfort. No hepatomegaly. Radial pulses are 2+ and strong. Lower extremities were asymmetrical, the left lower extremity greater than the right (chronic per the patient), were warm and well perfused. DIAGNOSTIC STUDIES/LAB DATA: A 12-lead ECG on admission, 03/08/17 at 10:30 in the morning, shows sinus rhythm, 54 beats a minute, QRS axis -30, normal AV and IV conduction times with an R-prime in V1. She has mild ST depression V3 through V6 and when this is compared with her most recent ECG of Dr. Jarquin's, the ST depression is new. Chemical nuclear study showed a reversible defect in the lateral wall in the distribution of the circ. The radiologist is also reporting anterior defect. Ejection fraction was 61% with TID of 1.09. I reviewed the films personally and although she has some gut abutting the inferior wall, there is nothing that should lead to attenuation defect in the area of reversible uptake. Cardiac catheterization, 10/16/16, interpreted by Dr. Lozada, showed noncritical disease in the ostium of the left main, 90% occlusion of the circumflex, chronically occluded right coronary artery with retrograde filling. V-gram not performed. Note from Dr. Zhu, 10/18/16, documents drug-eluting stent to 90% occlusion of the circumflex, suboptimal occlusion of a distal branch of the circumflex, unable to be intervened on and chronically occluded right coronary artery not intervened on. Labs this admission: Sodium 133, potassium 4.0, chloride 103, bicarb 24, glucose 182, BUN 17, creatinine 1.09, magnesium 1.7. ALT of 26, alk phos 120. Troponin #1 of 0.00, troponin #2 of 0.00, troponin #3 of 0.00. BNP of 72. TSH 2.9. White count 4.3, hemoglobin 11.1, hematocrit 33, and platelets 167,000. Baseline hematocrit ranges from 31 to 36, going back 2 years. IMPRESSION: In summary, Kelley Paul is a 61-year-old woman with 2-vessel coronary artery disease, multiple atherosclerotic risks, presenting with what sounds like crescendo angina, acute shortness of breath and shoulder pain with ST changes, normal troponins but an abnormal stress test showing reversible ischemia in the distribution of the circumflex that was stented in last October. The differential could be that as this is a small area, it is possible it is her OM branch, but there is also concern about stent reocclusion or new disease in the circumflex or progression of disease in the elem circumflex, and after review with our qc lab technician, we will plan on cardiac catheterization in the morning. In the interim, I would avoid excessive exertion. We will continue her Brilinta and aspirin. She is on good vasodilating agents currently. If she is having rest angina, we could add nitrates in the form of nitroglycerin paste, patch or if needed a drip, but currently she is resting comfortably. Further recommendations will be made pending the results of her cath. Thank you for allowing me to assist in this nice woman's care. [id number]/[facility] #: [id number] [place]
[2017-03-10] MEDS ORDERED: Diazepam TAB(*) 5 MG PO ONE (05:00)
[2017-03-10] MEDS ORDERED: diPHENhydraMINE PO* 25 MG PO ONE (05:00)
[2017-03-10] MEDS: NS 0.9% 1000 ML* 1,000 ML IV SCH ×2 (05:41→10:48)
[2017-03-10] MEDS: Heparin VIAL(*) 5000 UNITS/ML VIAL (FIVE THOUSAND) SUBCUT SCH ×3 (05:49→22:50)
[2017-03-10] MEDS: Omeprazole CAP* 20 MG PO SCH (08:13)
[2017-03-10] MEDS: Hydroxychloroquine TAB* 200 MG PO SCH ×2 (08:13→17:25)
[2017-03-10] MEDS: Aspirin EC Low Dose* 81 MG TAB.EC PO SCH (08:13)
[2017-03-10] MEDS: FLUoxetine CAP* 20 MG PO SCH (08:13)
[2017-03-10] MEDS: Diltiazem CD CAP* 240 MG PO SCH (08:13)
[2017-03-10] MEDS: buPROPion SR TAB.SR* 150 MG PO SCH (08:13)
[2017-03-10] MEDS: Valsartan TAB* 40 MG PO SCH (08:14)
[2017-03-10] MEDS: CMCS: Rosuvastatin (NF) 5 MG TAB PO SCH (08:14)
[2017-03-10] MEDS: Metoprolol Succinate XL TAB* 25 MG PO SCH (08:14)
[2017-03-10] MEDS: Ticagrelor* 90 MG TAB PO SCH ×2 (08:14→22:50)
[2017-03-10] MEDS: Mometasone/Formoter 200/5 MDI INH SCH ×2 (08:35→21:26)
[2017-03-10] MEDS ORDERED: Heparin 2 UNITS/ML IVPREMIX* 3,000 ML IV ONE (08:46)
[2017-03-10] MEDS ORDERED: Lidocaine 1% INJ* 10 MG/ML 30 ML SDV ONE (08:46)
[2017-03-10] MEDS ORDERED: fentaNYL* 50 MCG/ML 2 ML VIAL (100 MCG VIAL) ONE (08:46)
[2017-03-10] MEDS ORDERED: Midazolam* 1 MG/ML 10 ML VIAL (10 MG) ONE (08:47)
[2017-03-10] MEDS ORDERED: Iodixanol* (CONTRAST) 320 MG/ML 100 ML SDV ONE (08:57)
[2017-03-10] MEDS ORDERED: Methotrexate TAB* 2.5 MG PO SCH (09:00)
[2017-03-10] MEDS ORDERED: nitroGLYCERIN DRIP* 0 MCG/0 ML BTL ONE (09:14)
[2017-03-10] MEDS ORDERED: Heparin(*) 1000 UNIT/ML 10 ML VIAL CATH LAB IV ONE (09:15)
[2017-03-10] MEDS ORDERED: NS 0.9% 1000 ML* 1,000 ML IV SCH (10:15)
[2017-03-10] MEDS: HYDROcodone/ACETAMIN 5-325 MG* 1 TAB PO PRN (12:34)
--- NOTE | 2017-03-10 16:33 | PN ---
Subjective Date of Service: 03/10/17 Interval History: [facility] today, awaiting official report but per patient no stent and planned medical management. Dr. Leo to see again tonight. SOB and slight chest pressure when ambulating to the bathroom. Objective Active Medications: Hydrocodone Bitart/Acetaminophen ([place] 5-325 Tab*) 1 tab PO Q6H PRN PRN Reason: PAIN Last Admin: 03/10/17 12:34 Dose: 1 tab Aspirin (Aspirin Ec Low Dose*) 81 mg PO DAILY [facility] Last Admin: 03/10/17 08:13 Dose: 81 mg Bupropion HCl (Wellbutrin Sr Tab*) 300 mg PO QAM [facility] Last Admin: 03/10/17 08:13 Dose: 300 mg Cyanocobalamin (Vitamin B12 Tab*) 500 mcg PO 2100 [facility] Dextrose (D50w Syringe 50 Ml*) 12.5 gm IV PUSH .FOR FS < 60 - SS PRN PRN Reason: FS < 60 Diltiazem HCl (Cardizem Cd Cap*) 120 mg PO QPM [facility] Last Admin: 03/09/17 17:35 Dose: 120 mg Diltiazem HCl (Cardizem Cd Cap*) 240 mg PO QAM [facility] Last Admin: 03/10/17 08:13 Dose: 240 mg Diphenhydramine HCl (Benadryl Po*) 25 mg PO BEDTIME PRN PRN Reason: Allergy Symptoms Last Admin: 03/08/17 21:50 Dose: 25 mg Fluoxetine HCl (Prozac Cap*) 20 mg PO DAILY [facility] Last Admin: 03/10/17 08:13 Dose: 20 mg Folic Acid (Folvite Tab*) 2 mg PO 2100 [facility] Gabapentin (Neurontin Cap(*)) 600 mg PO BEDTIME [facility] Last Admin: 03/09/17 22:40 Dose: 600 mg Heparin Sodium (Porcine) (Heparin Vial(*)) 5,000 units SUBCUT Q8HR [facility] Last Admin: 03/10/17 13:43 Dose: 5,000 units Hydroxychloroquine Sulfate (Plaquenil Tab*) 200 mg PO BID WITH MEALS [facility] Last Admin: 03/10/17 08:13 Dose: 200 mg Sodium Chloride (Ns 0.9% 1000 Ml*) 1,000 mls @ 125 mls/hr IV .per rate [facility] Last Admin: 03/10/17 10:48 Dose: 125 mls/hr Insulin Aspart (Novolog (Nf)) 0 unit SUBCUT .SEE INSTRUCTIONS [facility] PRN Reason: Protocol Last Admin: 03/08/17 17:43 Dose: 1.5 unit Levalbuterol HCl (Xopenex Hfa Inhaler*) 2 puff INH Q4HR PRN PRN Reason: SOB/WHEEZING Meloxicam (Mobic(Nf)) 7.5 mg PO 2100 [facility] Methotrexate (Methotrexate Tab*) 15 mg PO Th@0900 [facility] Last Admin: 03/10/17 08:15 Dose: 15 mg Metoprolol Succinate (Toprol Xl Tab*) 25 mg PO DAILY [facility] Last Admin: 03/10/17 08:14 Dose: 25 mg Mometasone Furoate/Formoterol Fumar (Dulera 200/5 Mdi*) 2 puff INH BID [facility] Last Admin: 03/10/17 08:35 Dose: 2 puff Omeprazole (Prilosec Cap*) 40 mg PO QAM [facility] Last Admin: 03/10/17 08:13 Dose: 40 mg Rosuvastatin Calcium (Crestor (Nf)) 2.5 mg PO DAILY [facility] PRN Reason: Protocol Last Admin: 03/10/17 08:14 Dose: 2.5 mg Ticagrelor (Brilinta*) 90 mg PO BID [facility] Last Admin: 03/10/17 08:14 Dose: 90 mg Valsartan (Diovan Tab*) 40 mg PO DAILY [facility] Last Admin: 03/10/17 08:14 Dose: 40 mg Vital Signs - 8 hr 03/10/17 03/10/17 03/10/17 10:06 10:21 10:26 Temperature Pulse Rate 55 55 Respiratory Rate Blood Pressure 125/56 (mmHg) O2 Sat by Pulse Oximetry 03/10/17 03/10/17 03/10/17 10:28 10:31 10:34 Temperature 97.4 F Pulse Rate 55 55 Respiratory 16 16 Rate Blood Pressure 125/56 (mmHg) O2 Sat by Pulse 98 98 Oximetry 03/10/17 03/10/17 03/10/17 10:36 10:41 10:51 Temperature Pulse Rate 55 54 55 Respiratory Rate Blood Pressure 125/56 (mmHg) O2 Sat by Pulse 99 Oximetry 03/10/17 03/10/17 03/10/17 10:56 11:00 11:11 Temperature Pulse Rate 56 54 56 Respiratory Rate Blood Pressure 135/56 130/66 (mmHg) O2 Sat by Pulse 96 99 99 Oximetry 03/10/17 03/10/17 03/10/17 11:21 11:26 11:41 Temperature 98.5 F Pulse Rate 56 57 87 Respiratory 20 Rate Blood Pressure 124/52 110/53 (mmHg) O2 Sat by Pulse 98 94 Oximetry 03/10/17 03/10/17 03/10/17 11:51 11:56 12:00 Temperature Pulse Rate 57 56 55 Respiratory Rate Blood Pressure 127/51 (mmHg) O2 Sat by Pulse 94 96 Oximetry 03/10/17 03/10/17 03/10/17 12:11 12:26 12:34 Temperature Pulse Rate 55 59 Respiratory 16 Rate Blood Pressure 124/51 127/56 (mmHg) O2 Sat by Pulse 95 97 Oximetry 03/10/17 03/10/17 03/10/17 12:51 13:27 13:51 Temperature Pulse Rate 57 55 55 Respiratory Rate Blood Pressure 116/53 (mmHg) O2 Sat by Pulse 94 Oximetry 03/10/17 03/10/17 03/10/17 14:51 14:57 15:00 Temperature Pulse Rate 50 49 Respiratory 18 Rate Blood Pressure (mmHg) O2 Sat by Pulse 95 Oximetry 03/10/17 03/10/17 03/10/17 15:26 15:34 15:51 Temperature 97.7 F Pulse Rate 48 52 Respiratory 16 Rate Blood Pressure 121/52 (mmHg) O2 Sat by Pulse 97 Oximetry 03/10/17 16:00 Temperature Pulse Rate 50 Respiratory Rate Blood Pressure (mmHg) O2 Sat by Pulse Oximetry Oxygen Devices in Use Now: Nasal Cannula Appearance: NAD Neck: NL Appearance and Movements; NL JVP, Trachea Midline Respiratory: Symmetrical Chest Expansion and Respiratory Effort, Clear to Auscultation Abdominal: NL Sounds; No Tenderness; No Distention, No Hepatosplenomegaly Lymphatic: No Cervical Adenopathy Extremities: No Edema, No Clubbing, Cyanosis Skin: No Rash or Ulcers Neurological: Alert and Oriented x 3, NL Sensation, NL Muscle Strength and Tone Result Diagrams: 03/08/17 08:58 03/09/17 15:39 Additional Lab and Data: Laboratory Results - last 24 hr 03/09/17 03/10/17 03/10/17 22:51 11:29 16:44 POC Glucose (mg/dL) 186 H 195 H 179 H Microbiology and Other Data: Microbiology 03/08/17 14:35 Nasal Nasal Screen MRSA (PCR)(DAYNA) - Final Mrsa Negative Assess/Plan/Problems-Billing Assessment: 61 yo female PMH CAD s/p recent LCx stent (brilinta, aspirin), DMT1 on insulin pump, MARY, FM, RA, HTN presenting with SOB, chest pressure. Intermediate nuclear stress test with anterior ischemia/infarct. s/p LHC with Dr. Leo 03/10 with no stent. medical management. Likely d/c 03/11. - Patient Problems (1) CAD (coronary artery disease) Current Visit: Yes Status: Acute Code(s): I25.10 - ATHSCL HEART DISEASE OF [place] CORONARY ARTERY W/O ANG PCTRS SNOMED Code(s): 12047479 Comment: reversible anterior ischemia on nuc stress. s/p LHC with Dr. Leo today, no stent. f/u final medical management recs. troponins negative. nitrates if chest pain. ECHO EF 50-55% with regional wall motion abnormalities. Last cath October [address] Larose of [place], try to obtain records. continue brilinta 90mg and aspirin 81mg daily for now. There had been some talk of switching to plavix with Dr. Chong. States had not missed any doses. (2) Diabetes mellitus type 1 Current Visit: Yes Status: Acute Comment: continue insulin pump. POCT (3) HTN (hypertension) Current Visit: Yes Status: Acute Code(s): I10 - ESSENTIAL (PRIMARY) HYPERTENSION SNOMED Code(s): 57719291 Comment: continue valsartan 40; diltazaem 240 qam /120 qpm (4) Fibromyalgia Current Visit: Yes Status: Acute Code(s): M79.7 - FIBROMYALGIA SNOMED Code (s): 239777758 Comment: gabapentin 600mg qhs (5) Rheumatoid arthritis Current Visit: Yes Status: Acute Code(s): M06.9 - RHEUMATOID ARTHRITIS, UNSPECIFIED SNOMED Code(s): 42738587 Comment: continue plaquenil and methotrexate (6) MARY (obstructive sleep apnea) Current Visit: Yes Status: Acute Code(s): G47.33 - OBSTRUCTIVE SLEEP APNEA ( ADULT) (PEDIATRIC) SNOMED Code(s): 07608341 Comment: cpap qhs (7) Anxiety and depression Current Visit: Yes Status: Acute Code(s): F41.8 - OTHER SPECIFIED ANXIETY DISORDERS SNOMED Code(s): 776772544 Comment: continue wellbutrin and prozac Status and Disposition: medicine, planned d/c 03/11 after final card recs. Attending: Raúl Valdez
[2017-03-10] MEDS: Diltiazem CD CAP* 120 MG PO SCH (17:25)
[2017-03-10] MEDS ORDERED: CMCS: Meloxicam(NF) 7.5 MG TAB PO SCH (21:00)
[2017-03-10] MEDS ORDERED: Cyanocobalamin TAB* 500 MCG PO SCH (21:00)
[2017-03-10] MEDS ORDERED: Folic Acid TAB* 1 MG PO SCH (21:00)
[2017-03-10] MEDS: Gabapentin CAP(*) 300 MG PO SCH (22:49)
--- NOTE | 2017-03-11 00:26 | CATH ---
CC: Dr. Hazel Amaya; Dr. Trip Castillo * CARDIAC CATHETERIZATION REPORT: DATE OF PROCEDURE: 03/10/17 INDICATION FOR PROCEDURE: Asked by Dr. Amaya to perform cardiac catheterization in light of the patient presenting with diaphoretic episodes with shortness of breath with abnormal nuclear imaging suggesting reversible ischemia to the posterolateral wall with recent stent placed to the circumflex artery. PROCEDURE: Coronary arteriography, left heart catheterization, left ventriculography. DESCRIPTION OF PROCEDURE: The patient was interviewed and examined on the floor of the hospital where the risks and benefits were explained. She understood them and wished to proceed. EQUIPMENT USED: Diagnostic coronary angiography was performed utilizing a 5- [place] FL4 right and left curve diagnostic catheter. Left heart catheterization was performed utilizing a 5-[place] angle pigtail catheter. Closure device utilized Mynx vascular 5-[place] closure device. Approach: Right femoral artery. Total contrast used was 65 cc of Omnipaque dye. Radiation exposure included 5.3 minutes of fluoro time. Air kerma radiation was 676 milligray. DAP radiation 3916 microgray per meter squared. RESULTS: HEMODYNAMIC DATA: LEFT HEART CATHETERIZATION: Central aortic pressure recorded at 140/55, left ventricular pressure 140 over left ventricular end-diastolic pressure of 20. LEFT VENTRICULOGRAPHY: Performed in the [place] projection utilizing a total of 24 mL of Visipaque dye at a rate of 12 cc per second. Left ventriculography revealed low normal left ventricular systolic function. Overall ejection fraction estimated approximately 50%. No significant focal wall motion abnormality was noted. CORONARY ARTERIOGRAPHY: A: Left coronary artery. 1. Left main: The left main had calcification at the ostium. There appeared to be a narrowing in its worst view of 40%. It is an eccentric appearing lesion. It appeared less in other views. 2. Left anterior descending artery: The proximal portion of the left anterior descending artery had luminal tapering with a caliber change of 40% to 45%. This matched the continuation of the vessel. The mid portion had a mild hazy area with a luminal reduction of approximately 30% to 35%. Calcium was seen in this area. The artery continued onto the apical region on to the distal inferior wall. The mid diagonal branch with a moderate caliber vessel with no significant lesion seen. 3. Circumflex artery - a nondominant vessel with a thin first obtuse marginal branch with a moderate second obtuse marginal branch. There was a mild 25% to 30% narrowing seen prior to the second obtuse marginal branch. The continuation of the circumflex had mild 25% narrowing just prior to the area of stent placement in the mid to distal circumflex. There was a thin low lying posterior left ventricular branch originating from the stented area, which appeared to receive slow antegrade flow to this area. The lesion was appeared to be 99% at its origin and supplied a small area of myocardium. The caliber of the vessel was small in nature that may be due to hypoperfusion. B. Right coronary artery - the right coronary artery was a dominant vessel with a proximal narrowing of 65% followed by total occlusion at the take-off of an acute marginal branch. Of note, a more superior branch supplied collateral blood flow to the distal right coronary artery in a fairly brisk fashion with retrograde filling showing 2 areas of stenosis in the proximal to mid area after the total occlusion seen proximally. OVERALL ASSESSMENT: Low normal left ventricular systolic function with the presence of coronary artery disease involving the ostium of the left main with calcium mild-to- moderate in nature, but not significant. In addition to moderate proximal and mid LAD disease as well as a subtotally occluded 99% stenosed small caliber low volume posterior left ventricular branch off of the circumflex. The right coronary artery with its total occlusion has brisk collateral flow in a right to right fashion. Comparing this to prior catheterization of 10/06/16, the subtotally occluded obtuse marginal branch appeared back then to have had better collateral flow. This may be the cause of the ischemic zone seen on the nuclear image to the posterolateral wall. Consideration for adding medical management to perhaps including nitrate therapy for collateral dilatation may be helpful in this setting. Apparently, multiple attempts were made to wire this vessel and were not successful. Currently, this area would have to be approached through a stent now, which would be even less successful. Again, of note, this is a branch vessel rather than a proximal portion of a major coronary vessel. [id number]/[facility] #: [id number] [facility]ITAL[facility]
[2017-03-11] MEDS: Heparin VIAL(*) 5000 UNITS/ML VIAL (FIVE THOUSAND) SUBCUT SCH (05:48)
[2017-03-11] MEDS: Mometasone/Formoter 200/5 MDI INH SCH (07:44)
[2017-03-11] MEDS: Omeprazole CAP* 20 MG PO SCH (07:49)
[2017-03-11] MEDS: Ticagrelor* 90 MG TAB PO SCH (07:49)
[2017-03-11] MEDS: FLUoxetine CAP* 20 MG PO SCH (07:49)
[2017-03-11] MEDS: buPROPion SR TAB.SR* 150 MG PO SCH (07:49)
[2017-03-11] MEDS: Aspirin EC Low Dose* 81 MG TAB.EC PO SCH (07:49)
[2017-03-11] MEDS: Hydroxychloroquine TAB* 200 MG PO SCH (07:49)
[2017-03-11] MEDS: Metoprolol Succinate XL TAB* 25 MG PO SCH (08:00)
[2017-03-11 08:29] LABS: EGFR Non-African American 54.2 (>60)
--- NOTE | 2017-03-11 08:38 | PN ---
Subjective Date of Service: 03/11/17 Interval History: s/p angiogram no chest discomfort or dyspnea sinus bradycardia on telemetry often below 50 bpm, will need to decrease diltiazem back down to home dosing of 120 mg po bid wound care as per Dr. Leo no arrhythmias Medications Active Medications: Hydrocodone Bitart/Acetaminophen ([place] 5-325 Tab*) 1 tab PO Q6H PRN PRN Reason: PAIN Last Admin: 03/10/17 12:34 Dose: 1 tab Aspirin (Aspirin Ec Low Dose*) 81 mg PO DAILY [facility] Last Admin: 03/11/17 07:49 Dose: 81 mg Bupropion HCl (Wellbutrin Sr Tab*) 300 mg PO QAM [facility] Last Admin: 03/11/17 07:49 Dose: 300 mg Cyanocobalamin (Vitamin B12 Tab*) 500 mcg PO 2100 [facility] Last Admin: 03/10/17 22:50 Dose: 500 mcg Dextrose (D50w Syringe 50 Ml*) 12.5 gm IV PUSH .FOR FS < 60 - SS PRN PRN Reason: FS < 60 Diltiazem HCl (Cardizem Cd Cap*) 120 mg PO QPM [facility] Last Admin: 03/10/17 17:25 Dose: 120 mg Diltiazem HCl (Cardizem Cd Cap*) 240 mg PO DAILY [facility] Diphenhydramine HCl (Benadryl Po*) 25 mg PO BEDTIME PRN PRN Reason: Allergy Symptoms Last Admin: 03/08/17 21:50 Dose: 25 mg Fluoxetine HCl (Prozac Cap*) 20 mg PO DAILY [facility] Last Admin: 03/11/17 07:49 Dose: 20 mg Folic Acid (Folvite Tab*) 2 mg PO 2100 [facility] Last Admin: 03/10/17 22:50 Dose: 2 mg Gabapentin (Neurontin Cap(*)) 600 mg PO BEDTIME [facility] Last Admin: 03/10/17 22:49 Dose: 600 mg Heparin Sodium (Porcine) (Heparin Vial(*)) 5,000 units SUBCUT Q8HR [facility] Last Admin: 03/11/17 05:48 Dose: 5,000 units Hydroxychloroquine Sulfate (Plaquenil Tab*) 200 mg PO BID WITH MEALS [facility] Last Admin: 03/11/17 07:49 Dose: 200 mg Insulin Aspart (Novolog (Nf)) 0 unit SUBCUT .SEE INSTRUCTIONS [facility] PRN Reason: Protocol Last Admin: 03/08/17 17:43 Dose: 1.5 unit Levalbuterol HCl (Xopenex Hfa Inhaler*) 2 puff INH Q4HR PRN PRN Reason: SOB/WHEEZING Meloxicam (Mobic(Nf)) 7.5 mg PO 2100 [facility] Last Admin: 03/10/17 22:52 Dose: 7.5 mg Methotrexate (Methotrexate Tab*) 15 mg PO Th@0900 [facility] Last Admin: 03/10/17 08:15 Dose: 15 mg Metoprolol Succinate (Toprol Xl Tab*) 25 mg PO DAILY [facility] Last Admin: 03/11/17 08:00 Dose: 25 mg Mometasone Furoate/Formoterol Fumar (Dulera 200/5 Mdi*) 2 puff INH BID [facility] Last Admin: 03/11/17 07:44 Dose: 2 puff Nitroglycerin (Nitroglycerin 5 Mg Patch*) 1 patch TRANSDERM DAILY [facility] Omeprazole (Prilosec Cap*) 40 mg PO QAM [facility] Last Admin: 03/11/17 07:49 Dose: 40 mg Pharmacy Profile Note (Nitro Patch/Oint Remove*) 1 note PATCH OFF 2100 [facility] Pharmacy Profile Note (Nitro Patch/Oint Remove*) 1 note TOPICAL .WIPE OFF AFTER D/C [facility] Rosuvastatin Calcium (Crestor (Nf)) 2.5 mg PO DAILY [facility] PRN Reason: Protocol Last Admin: 03/10/17 08:14 Dose: 2.5 mg Ticagrelor (Brilinta*) 90 mg PO BID [facility] Last Admin: 03/11/17 07:49 Dose: 90 mg Valsartan (Diovan Tab*) 40 mg PO DAILY [facility] Last Admin: 03/10/17 08:14 Dose: 40 mg Objective Vital Signs: Temp Pulse Resp BP Pulse Ox 98.4 F 55 18 117/46 99 03/11/17 07:30 03/11/17 07:45 03/11/17 07:45 03/11/17 07:30 03/11/17 07:45 Oxygen Devices in Use Now: None Appearance: nad, pleasant Ears/Nose/Mouth/Throat: Clear Oropharnyx Neck: NL Appearance and Movements; NL JVP Respiratory: Symmetrical Chest Expansion and Respiratory Effort, Clear to Auscultation Cardiovascular: NL Sounds; No Murmurs; No JVD, RRR, No Edema Abdominal: NL Sounds; No Tenderness; No Distention Extremities: No Edema Skin: No Rash or Ulcers Neurological: Alert and Oriented x 3 Laboratory Results: 03/08/17 08:58 03/09/17 15:39 INR (Anticoag Therapy) 0.94 (0.77-1.02) 03/09/17 15:39 Total Bilirubin 0.50 mg/dL (0.2-1.0) 03/08/17 08:58 AST 19 U/L (13-39) 03/08/17 08:58 ALT 26 U/L (7-52) 03/08/17 08:58 Alkaline Phosphatase 120 U/L (34-104) H 03/08/17 08:58 B-Natriuretic Peptide 72 pg/mL (-100) 03/08/17 08:58 Total Protein 6.1 g/dL (6.4-8.9) L 03/08/17 08:58 Albumin 3.6 g/dL (3.2-5.2) 03/08/17 08:58 Globulin 2.5 g/dL (2-4) 03/08/17 08:58 Albumin/Globulin Ratio 1.4 (1-3) 03/08/17 08:58 Triglycerides 95 mg/dL 03/09/17 05:33 Cholesterol 152 mg/dL 03/09/17 05:33 LDL Cholesterol 74 mg/dL 03/09/17 05:33 HDL Cholesterol 59.3 mg/dL 03/09/17 05:33 TSH 2.90 mcIU/mL (0.34-5.60) 03/08/17 08:58 03/08/17 03/08/17 03/08/17 08:58 10:36 17:48 Troponin I 0.00 0.00 0.00 03/08/17 22:41 Troponin I 0.00 Assessment/Plan 61 year old woman here with known CAD/PCI progressive angina, abnormal stress test, coronary angiogram with no intervenable targets (see report when dictated) , LVEF 50-55% - Continue motorized squad captain aspirin 81 mg po bid - Continue motorized squad captain brillinta 90 mg po bid - Continue motorized squad captain statin - Continue anti-anginal motorized squad captain toprol 25 mg po daily - Restart anti-anginal motorized squad captain nitro patch (ordered) - Given significant bradycardia, decrease anti-anginal diltiazem back to [place] [facility] 120 mg po bid (ordered) - Given normal LV function, will stop valsartan and start amlodipine 2.5 mg po daily (ordered) for now current SBP < 120 but I suspect this could be uptitrated in near future. I discussed this with Dr. Leo and she has a follow up appointment with him already scheduled on 03/16/2017 - Would have patient ambulate later today on above regimen and if asymptomatic can be discharged Thank you for allowing me to participate in the cardiovascular care of this patient. Please do not hesitate to contact me with questions or concerns.
[2017-03-11] MEDS ORDERED: Diltiazem CD CAP* 120 MG PO SCH (09:00)
[2017-03-11] MEDS ORDERED: amLODIPine TAB* 5 MG PO SCH (09:00)
[2017-03-11] MEDS ORDERED: Nitro Patch/OINT Remove TOPICAL SCH (09:00)
[2017-03-11] MEDS ORDERED: Nitroglycerin 0.2 MG/HR PATCH* (5 MG) TRANSDERM SCH (09:00)
--- NOTE | 2017-03-11 10:08 | DCNOTE ---
Subjective Date of Service: 03/11/17 Interval History: Some back pain from prolonged time in bed, not unusual for her. No chest pressure/pain. Anxious to go home. Objective Active Medications: Hydrocodone Bitart/Acetaminophen (Tonica 5-325 Tab*) 1 tab PO Q6H PRN PRN Reason: PAIN Last Admin: 03/10/17 12:34 Dose: 1 tab Amlodipine Besylate (Norvasc Tab*) 2.5 mg PO DAILY [facility] Last Admin: 03/11/17 09:52 Dose: 2.5 mg Aspirin (Aspirin Ec Low Dose*) 81 mg PO DAILY [facility] Last Admin: 03/11/17 07:49 Dose: 81 mg Bupropion HCl (Wellbutrin Sr Tab*) 300 mg PO QAM [facility] Last Admin: 03/11/17 07:49 Dose: 300 mg Cyanocobalamin (Vitamin B12 Tab*) 500 mcg PO 2100 [facility] Last Admin: 03/10/17 22:50 Dose: 500 mcg Dextrose (D50w Syringe 50 Ml*) 12.5 gm IV PUSH .FOR FS < 60 - SS PRN PRN Reason: FS < 60 Diltiazem HCl (Cardizem Cd Cap*) 120 mg PO QPM [facility] Last Admin: 03/10/17 17:25 Dose: 120 mg Diltiazem HCl (Cardizem Cd Cap*) 120 mg PO DAILY [facility] Last Admin: 03/11/17 09:53 Dose: 120 mg Diphenhydramine HCl (Benadryl Po*) 25 mg PO BEDTIME PRN PRN Reason: Allergy Symptoms Last Admin: 03/08/17 21:50 Dose: 25 mg Fluoxetine HCl (Prozac Cap*) 20 mg PO DAILY [facility] Last Admin: 03/11/17 07:49 Dose: 20 mg Folic Acid (Folvite Tab*) 2 mg PO 2100 [facility] Last Admin: 03/10/17 22:50 Dose: 2 mg Gabapentin (Neurontin Cap(*)) 600 mg PO BEDTIME [facility] Last Admin: 03/10/17 22:49 Dose: 600 mg Heparin Sodium (Porcine) (Heparin Vial(*)) 5,000 units SUBCUT Q8HR [facility] Last Admin: 03/11/17 05:48 Dose: 5,000 units Hydroxychloroquine Sulfate (Plaquenil Tab*) 200 mg PO BID WITH MEALS [facility] Last Admin: 03/11/17 07:49 Dose: 200 mg Insulin Aspart (Novolog (Nf)) 0 unit SUBCUT .SEE INSTRUCTIONS [facility] PRN Reason: Protocol Last Admin: 03/08/17 17:43 Dose: 1.5 unit Levalbuterol HCl (Xopenex Hfa Inhaler*) 2 puff INH Q4HR PRN PRN Reason: SOB/WHEEZING Meloxicam (Mobic(Nf)) 7.5 mg PO 2100 [facility] Last Admin: 03/10/17 22:52 Dose: 7.5 mg Methotrexate (Methotrexate Tab*) 15 mg PO Th@0900 [facility] Last Admin: 03/10/17 08:15 Dose: 15 mg Metoprolol Succinate (Toprol Xl Tab*) 25 mg PO DAILY [facility] Last Admin: 03/11/17 08:00 Dose: 25 mg Mometasone Furoate/Formoterol Fumar (Dulera 200/5 Mdi*) 2 puff INH BID [facility] Last Admin: 03/11/17 07:44 Dose: 2 puff Nitroglycerin (Nitroglycerin 5 Mg Patch*) 1 patch TRANSDERM DAILY [facility] Last Admin: 03/11/17 09:54 Dose: 1 patch Omeprazole (Prilosec Cap*) 40 mg PO QAM [facility] Last Admin: 03/11/17 07:49 Dose: 40 mg Pharmacy Profile Note (Nitro Patch/Oint Remove*) 1 note PATCH OFF 2100 [facility] Rosuvastatin Calcium (Crestor (Nf)) 2.5 mg PO DAILY [facility] PRN Reason: Protocol Last Admin: 03/10/17 08:14 Dose: 2.5 mg Ticagrelor (Brilinta*) 90 mg PO BID [facility] Last Admin: 03/11/17 07:49 Dose: 90 mg Vital Signs - 8 hr 03/11/17 03/11/17 03/11/17 04:08 07:30 07:45 Temperature 97.3 F 98.4 F Pulse Rate 49 56 55 Respiratory 16 18 18 Rate Blood Pressure 128/51 117/46 (mmHg) O2 Sat by Pulse 100 98 99 Oximetry 03/11/17 08:00 Temperature Pulse Rate Respiratory 18 Rate Blood Pressure (mmHg) O2 Sat by Pulse Oximetry Oxygen Devices in Use Now: None Appearance: Alert, sitting on the edge of her bed. In good spirits. Looks comfortable. Eyes: No Scleral Icterus Extremities: No Edema, No Clubbing, Cyanosis, - Skin: No Rash or Ulcers, No Nodules or Sclerosis, - Neurological: Alert and Oriented x 3, NL Sensation Result Diagrams: 03/08/17 08:58 03/11/17 08:00 Additional Lab and Data: Laboratory Results - last 24 hr 03/09/17 03/10/17 03/10/17 22:51 11:29 16:44 POC Glucose (mg/dL) 186 H 195 H 179 H Microbiology and Other Data: Microbiology 03/08/17 14:35 Nasal Nasal Screen MRSA (PCR)(DAYNA) - Final Mrsa Negative Assess/Plan/Problems-Billing Assessment: 61 yo female PMH CAD s/p recent LCx stent (brilinta, aspirin), DMT1 on insulin pump, MARY, FM, RA, HTN presenting with SOB, chest pressure. Intermediate nuclear stress test with anterior ischemia/infarct. s/p LHC with Dr. Leo 03/10 with no stent. medical management. Likely d/c 03/11. - Patient Problems (1) CAD (coronary artery disease) Current Visit: Yes Status: Acute Code(s): I25.10 - ATHSCL HEART DISEASE OF [place] CORONARY ARTERY W/O ANG PCTRS SNOMED Code(s): 80848036 Comment: reversible anterior ischemia on nuc stress. s/p LHC with Dr. Leo today, no stent.Dr. Chong's note tody appreciated. NTG patch re-started. ECHO EF 50-55% with regional wall motion abnormalities. Continue ASA, ticagrelor. (2) Diabetes mellitus type 1 Current Visit: Yes Status: Acute Comment: continue insulin pump. Re-start metformin 03/13/17. (3) MARY (obstructive sleep apnea) Current Visit: Yes Status: Acute Code(s): G47.33 - OBSTRUCTIVE SLEEP APNEA ( ADULT) (PEDIATRIC) SNOMED Code(s): 14508635 Comment: cpap qhs (4) Rheumatoid arthritis Current Visit: Yes Status: Acute Code(s): M06.9 - RHEUMATOID ARTHRITIS, UNSPECIFIED SNOMED Code(s): 81915403 Comment: continue plaquenil and methotrexate (5) HTN (hypertension) Current Visit: Yes Status: Acute Code(s): I10 - ESSENTIAL (PRIMARY) HYPERTENSION SNOMED Code(s): 40637901 Comment: Valsartan d/c'd; diltazaem 120 BID, rx amlodipine 2.5 mg daily. (6) Morbid obesity Current Visit: Yes Status: Acute Code(s): E66.01 - MORBID (SEVERE) OBESITY DUE TO EXCESS CALORIES SNOMED Code(s): 811155443 Comment: BMI 41.2. Status and Disposition: D/C now, fup Milka Summers.
--- NOTE | 2017-03-11 10:25 | PN ---
Progress Note - Progress Note Date of Service: 03/11/17 Note: Time spent on discharge 50 minutes.
[2017-03-11] MEDS: CMCS: Rosuvastatin (NF) 5 MG TAB PO SCH (11:39)
[2017-03-11 12:29] VITALS: BP 132/65
[2017-03-11] MEDS ORDERED: Nitro Patch/OINT Remove PATCH OFF SCH (21:00)
--- NOTE | 2017-03-12 03:57 | DS ---
CC: Dr. Castillo; Dr. Jarquin DISCHARGE SUMMARY: DATE OF ADMISSION: DATE OF DISCHARGE: 03/11/17 HOSPITAL COURSE: This 61-year-old woman presented with chest pain and an abnormal stress test. She recently had a coronary artery stent in October 2016. Chemical stress test on the day of admission sh owed a reversible defect in the lateral wall, abnormal ventricular function. She underwent cardiac c atheterization on 03/10/17. There were no intervenable targets. LVEF was 50% to 55%. Dr. Chong adjusted her cardiac meds. She will take valsartan and has been stopped, diltiazem will b e 120 mg b.i.d., amlodipine 2.5 mg was added. She has restarted her nitroglycerin patch. Metformin was withheld and the patient was instructed not to take it before 03/13/17. FINAL DIAGNOSES: 1. Coronary artery disease. 2. Diabetes mellitus. 3. Rheumatoid arthritis. 4. Morbid obesity. 5. Hypertension. 6. Obstructive sleep apnea. DISCHARGE MEDICATIONS: 1. Amlodipine 2.5 mg daily. 2. Diltiazem CD 120 mg b.i.d. 3. Insulin by pump. 4. Nitroglycerin 0.2 mg per hour by patch. 5. Bupropion SR 300 mg daily. 6. Meloxicam 7.5 mg daily. 7. Folic acid 2 mg daily. 8. Nitroglycerin 0.4 mg sublingual every 5 minutes p.r.n. 9. Aspirin 81 mg daily. 10. Fluoxetine 20 mg daily. 11. Methotrexate 15 mg every . 12. Omeprazole 40 mg daily. 13. Gabapentin 300 mg as prescribed. 14. Levalbuterol two puffs every 4 hours p.r.n. 15. Mometasone and formoterol 200/5 two puffs b.i.d. 16. Hydroxychloroquine 200 mg b.i.d. 17. Hydrocodone/acetaminophen 5/325 one every 6 hours p.r.n. 18. Metformin 1000 mg b.i.d. to start 03/13/17. 19. Ticagrelor 90 mg b.i.d. 20. Metoprolol succinate 25 mg daily. 21. Rosuvastatin 2.5 mg daily. 22. Vitamin B12 of 500 mcg daily. 23. Ferrous gluconate 27 mg daily. 24. Betamethasone dipropionate 0.05% t.i.d. p.r.n. [id number]/[facility] #: [id number]
== END 2017-03-11 13:18 | disposition home or self-care (01) | DRG 287 ==
LOC: ED 08:15 → MEDTELE 10:37 → OBSVTOIN 03-09 14:00
PROVIDERS: ADMIT Internal Medicine; ATTEND Internal Medicine
PROC: 4A023N7 Measurement of Cardiac Sampling and Pressure, Left Heart, Percutaneous Approach (ICD-10-PCS; 2017-03-10)
PROC: B2151ZZ Fluoroscopy of Left Heart using Low Osmolar Contrast (ICD-10-PCS; 2017-03-10)
PROC: B2111ZZ Fluoroscopy of Multiple Coronary Arteries using Low Osmolar Contrast (ICD-10-PCS; principal; 2017-03-10 08:45)
PROC: 4A12XM4 Monitoring of Cardiac Stress, External Approach (ICD-10-PCS; 2017-03-11)
DX: I25.119 Atherosclerotic heart disease of native coronary artery with unspecified angina pectoris (principal); E10.8 Type 1 diabetes mellitus with unspecified complications; Z68.41 Body mass index [BMI] 40.0-44.9, adult; E66.01 Morbid (severe) obesity due to excess calories; G47.33 Obstructive sleep apnea (adult) (pediatric); I10 Essential (primary) hypertension; M79.7 Fibromyalgia; F41.9 Anxiety disorder, unspecified; F32.9 Major depressive disorder, single episode, unspecified; E78.5 Hyperlipidemia, unspecified; D53.9 Nutritional anemia, unspecified; I25.9 Chronic ischemic heart disease, unspecified; R00.1 Bradycardia, unspecified; R51 Headache; J45.909 Unspecified asthma, uncomplicated; M06.9 Rheumatoid arthritis, unspecified; E83.42 Hypomagnesemia; Z88.1 Allergy status to other antibiotic agents; Z88.8 Allergy status to other drugs, medicaments and biological substances; Z90.710 Acquired absence of both cervix and uterus; Z98.51 Tubal ligation status; Z82.49 Family history of ischemic heart disease and other diseases of the circulatory system; I25.2 Old myocardial infarction; Z95.5 Presence of coronary angioplasty implant and graft; Z87.891 Personal history of nicotine dependence; Z80.6 Family history of leukemia; Z80.0 Family history of malignant neoplasm of digestive organs; Z79.82 Long term (current) use of aspirin; Z79.4 Long term (current) use of insulin; Z79.02 Long term (current) use of antithrombotics/antiplatelets; Z83.3 Family history of diabetes mellitus; Z86.14 Personal history of Methicillin resistant Staphylococcus aureus infection
CPT/HCPCS: 36415; 71045; 76937; 78452; 80048; 80053; 80061; 83735; 83880; 84443; 84484; 85025; 85610; 87641; 93005; 93017; 93306; 93458; 94640; 94660; 94760; 96365; 96372; 99284; A9270-GY; A9502; C1887; C8929; G0378; J1644; J2250; J2785; J3010; J3475; J8610

== ENCOUNTER 2017-07-18 10:40 | Day surgery (SDC) | payer MEDICARE ==
[~2017-07-18 10:40] MED LIST: Buffered Lidocaine 0.9% SYRIN* 5 ML/SYR SYRINGE INTRADERM ONE; Famotidine IV* 10 MG/ML 2 ML (20 mg) IV ONE
[2017-07-18] MEDS ORDERED: Buffered Lidocaine 0.9% SYRIN* 5 ML/SYR SYRINGE ONE (10:52)
[2017-07-18] MEDS ORDERED: Famotidine IV* 10 MG/ML 2 ML (20 mg) ONE (10:52)
[2017-07-18] MEDS ORDERED: ceFAZolin 2 GM PREMIX (*) 2 GM/50 ML BAG IVPB ONE (10:52)
[2017-07-18] MEDS ORDERED: fentaNYL* 50 MCG/ML 2 ML VIAL (100 MCG VIAL) ONE (11:12)
[2017-07-18] MEDS ORDERED: DiMENhydriNATE IV* 50 MG/ML VIAL ONE (11:13)
[2017-07-18] MEDS ORDERED: Lidocaine 2% PF * 5 ML VIAL ONE (11:13)
[2017-07-18] MEDS ORDERED: Midazolam* 1 MG/ML 5 ML VIAL (5 MG) ONE (11:13)
[2017-07-18] MEDS ORDERED: Propofol* 10 MG/ML 20 ML BTL IV PUSH ONE (11:13)
[2017-07-18] MEDS ORDERED: Dexamethasone IV* 4 MG/ML 1 ML (4 MG) ONE (11:13)
[2017-07-18] MEDS ORDERED: HYDROcodone/ACETAMIN 5-325 MG* 1 TAB PO PRN (11:49)
[2017-07-18] MEDS ORDERED: Naloxone* 0.4 MG/ML 1 ML VIAL IV PRN (11:49)
[2017-07-18] MEDS ORDERED: Ondansetron ODT TAB* 4 MG PO PRN (11:49)
[2017-07-18] MEDS ORDERED: Bupivacaine 0.25% SDV* 30 ML ONE (11:50)
[2017-07-18] MEDS ORDERED: Lidocaine 1% INJ* 10 MG/ML 30 ML SDV ONE (11:52)
[2017-07-18 13:05] VITALS: BP 138/72
--- NOTE | 2017-07-18 14:45 | OP ---
Operative Report - Blank - Operative Report Date of Operation: 07/18/17 Note: DATE OF OPERATION: 07/18/17 - SDS DATE OF : 1955 SURGEON: Omari Chandler MD. LABOR MEDIATOR: STANISLAV Ferrari ANESTHESIOLOGIST: Dr. Ochoa. ANESTHESIA: Local MAC PRE-OP DIAGNOSIS: Right dequervains disease. POST-OP DIAGNOSIS: Right dequervains disease. OPERATIVE PROCEDURE: 1. Right first dorsal compartment tendon sheath release INDICATIONS: Kelley has Dequervains disease that has recurred despite injections. We talked about treatment options and the patient wanted to proceed with surgical release. ESTIMATED BLOOD LOSS: 2 mL. COMPLICATIONS: None. FINDINGS: As expected. DESCRIPTION OF PROCEDURE: Kelley was seen in the preoperative holding area. The correct side, site, and procedure were identified. We came back to the operating room. I infiltrated the operative area with 0.25% Marcaine. The arm was prepped and draped in the usual fashion. Time-out was performed. The arm was exsanguinated with the Esmarch and the tourniquet was inflated to 250 mmHg. I transverse incision over the first dorsal compartment tendon sheath. Full thickness flaps were bluntly raised off the tendon sheath and the radial sensory nerve was retracted. I then longitudinally incised the first dorsal compartment tendon sheath along its dorsal margin in line with the tendons. An accessory compartment was . The tendons were completely freed. The tenosynovitis was excised. The skin was closed with 4-0 monocryl and steri- strips. The wound was dressed, tourniquet deflated, and the patient was taken to the recovery room in stable condition.
== END 2017-07-18 13:30 | disposition home or self-care (01) ==
LOC: OR 10:40
PROVIDERS: ATTEND Orthopaedic Surgery Hand Surgery
DX: M65.4 Radial styloid tenosynovitis [de Quervain] (principal); E11.9 Type 2 diabetes mellitus without complications; Z96.41 Presence of insulin pump (external) (internal); Z79.4 Long term (current) use of insulin; Z79.84 Long term (current) use of oral hypoglycemic drugs; I10 Essential (primary) hypertension; G47.33 Obstructive sleep apnea (adult) (pediatric); I25.10 Atherosclerotic heart disease of native coronary artery without angina pectoris; E66.01 Morbid (severe) obesity due to excess calories; Z68.41 Body mass index [BMI] 40.0-44.9, adult; Z87.891 Personal history of nicotine dependence; J44.9 Chronic obstructive pulmonary disease, unspecified; M79.7 Fibromyalgia
CPT/HCPCS: J0690; J1100; J1240; J2250; J2704; J3010

== ENCOUNTER 2018-07-17 06:07 | Day surgery (SDC) | payer MEDICARE, OTHER ==
[~2018-07-17 06:07] MED LIST changes: -Buffered Lidocaine 0.9% SYRIN* 5 ML/SYR SYRINGE INTRADERM ONE; +Buffered Lidocaine 1% SYRIN* 1 ML/SYRINGE INTRADERM ONE; -Famotidine IV* 10 MG/ML 2 ML (20 mg) IV ONE; +Lactated Ringers 1000 ML Bag* 1,000 ML IV SCH
[2018-07-17] MEDS ORDERED: ceFAZolin 2 GM PREMIX in ORs 2 GM/50 ML BAG IVPB ONE (06:36)
[2018-07-17] MEDS ORDERED: Bupivacaine 0.25% SDV PF* 10 ML VIAL INJ ONE (08:26)
[2018-07-17] MEDS ORDERED: fentaNYL* 50 MCG/ML 2 ML VIAL (100 MCG VIAL) ONE (08:40)
[2018-07-17] MEDS ORDERED: Lidocaine 2% PF * 5 ML VIAL ONE (08:40)
[2018-07-17] MEDS ORDERED: Propofol* 10 MG/ML 20 ML BTL ONE (08:40)
[2018-07-17] MEDS ORDERED: Naloxone* 0.4 MG/ML 1 ML VIAL IV PRN (09:02)
[2018-07-17 09:42] VITALS: BP 112/53
[2018-07-17] MEDS ORDERED: HYDROcodone/ACETAMIN 5-325 MG* 1 TAB ONE (09:50)
--- NOTE | 2018-07-17 16:49 | OP ---
DATE OF OPERATION: 07/17/18 - [facility] DATE OF : 59 SURGEON: Omari Chandler MD. CHAIN SAW OPERATOR: STANISLAV Ferrari. ANESTHESIOLOGIST: Dr. Fraser. ANESTHESIA: Local MAC. PRE-OP DIAGNOSES: 1. Left ring trigger finger. 2. Left hand Dupuytren's disease. POST-OP DIAGNOSES: 1. Left ring trigger finger. 2. Left hand Dupuytren's disease. OPERATIVE PROCEDURE: 1. Left ring trigger finger release at the A1 parth. 2. Left hand Dupuytren's excision. INDICATIONS: Kelley has pretty severe trigger finger. Additionally, she has a central cord right in that region. It does not extend down onto the finger, but it is right in the palm in that area. We talked about risks and benefits. She wanted to have it excised and to do the trigger finger release. ESTIMATED BLOOD LOSS: 2 mL. COMPLICATIONS: None. FINDINGS: See above and below. DESCRIPTION OF PROCEDURE: Kelley was seen in the preoperative holding area. The correct side, site, and procedure were identified. We came back to the operating room where the arm was prepped and draped in the usual fashion. A time-out was performed. Marcaine was infiltrated in the operative area. I went ahead and made a Octaviano-type incision in the distal palm over the area of the Dupuytren's disease. Dissection was carried down, and the skin and the subcutaneous tissue was released off Dupuytren's disease. It was released proximally about a centimeter distal to the carpal tunnel. It was then released from proximal to distal releasing the vertical septae and was released distally in the area of the A1 parth. This was handed off as a specimen. With the Dupuytren's excised and excellent view of the A1 parth, I released the entirety of the A1 parth longitudinally along the radial third with the tenotomy scissors. I then had her open and close the hand multiple times. She could induce no triggering , whereas it triggered every time prior to doing the release. Everything was looking good, so we irrigated out the wound. The skin was closed with 4-0 nylon suture. Soft dressings were applied and she was taken to the recovery room in stable condition. [id number]/[facility] #: [id number] [facility]
== END 2018-07-17 10:23 | disposition home or self-care (01) ==
LOC: OR 06:07
PROVIDERS: ATTEND Orthopaedic Surgery Hand Surgery
DX: M72.0 Palmar fascial fibromatosis [Dupuytren] (principal); M65.342 Trigger finger, left ring finger; I10 Essential (primary) hypertension; E78.00 Pure hypercholesterolemia, unspecified; M19.90 Unspecified osteoarthritis, unspecified site; K21.9 Gastro-esophageal reflux disease without esophagitis; E10.9 Type 1 diabetes mellitus without complications; Z79.4 Long term (current) use of insulin; Z96.41 Presence of insulin pump (external) (internal); Z87.891 Personal history of nicotine dependence; M06.9 Rheumatoid arthritis, unspecified; G47.33 Obstructive sleep apnea (adult) (pediatric); I45.10 Unspecified right bundle-branch block
CPT/HCPCS: 88304; J0690; J2704; J3010; J3490

== ENCOUNTER 2018-07-28 17:24 | Emergency (ER) | payer MEDICARE, OTHER ==
[2018-07-28 17:51] VITALS: BP 139/64
--- NOTE | 2018-07-28 18:32 | UC ---
Skin Complaint HPI - HPI Summary HPI Summary: 63-year-old woman comes in to have her sutures removed from her left palm. Patient had surgery with the orthopedist on July 17, 2018. She has some difficulties with scheduling and comes here and they 11 to get her sutures removed. She did notice some pus in one area of the incision. She's not totally sure how many sutures were and there. No complaint of fevers chills streaking decreased range of motion decreased sensation. - History of Current Complaint Chief Complaint: UCSkin Time Seen by Provider: 07/28/18 18:03 Stated Complaint: SUTURE REMOVAL Hx Last Menstrual Period: post menopause Pain Intensity: 4 - Allergy/Home Medications Allergies/Adverse Reactions: Allergies Allergy/AdvReac Type Severity Reaction Status Date / Time acetaminophen Allergy Nausea Verified 07/28/18 17:53 adhesive tape Allergy Rash And Verified 07/28/18 17:53 Itching amoxicillin Allergy GI Upset Verified 07/28/18 17:53 clavulanic acid Allergy GI Upset Verified 07/28/18 17:53 [From Augmentin] latex Allergy ITCHINESS Verified 07/28/18 17:53 oxycodone Allergy Hallucinati Verified 07/28/18 17:53 ons Perfume [Fragrance] Allergy ASTHMA Verified 07/28/18 17:53 red yeast rice Allergy Unknown Verified 07/28/18 17:53 Reaction Details Obyeoik-Kro-Fvd Reductase Allergy Muscle Ache Verified 07/28/18 17:53 Inhibitor ticagrelor [From Brilinta] Allergy DIFFICULTY Verified 07/28/18 17:53 WITH BREATHING PMH/Surg Hx/FS Hx/Imm Hx Previously Healthy: Yes Endocrine History: Diabetes Cardiovascular History: Cardiac Disease, Hypertension Other History Of: Anticoagulant Therapy - ASA 81 mg qd - Surgical History Surgical History: Yes Surgery Procedure, Year, and Place: CARPAL TUNNEL - DOROTHY. C4-5 DISCETOMY. HYSTERECTOMY-APENDECTOMY. TUBAL LIGATION 1977. C SECTION 1976. CONTRACTURE- HAND- Rt. LT KNEE - ARTHROSCOPIC. Lt SHOULDER. GALLBLADDER REMOVED. trigger finger 2018 - Family History Known Family History: Positive: Cardiac Disease, Hypertension - Social History Alcohol Use: Rare Alcohol Amount: 1 per month Substance Use Type: None Smoking Status (MU): Former Smoker Type: Cigarettes Amount Used/How Often: pack a day for 17 yrs Have You Smoked in the Last Year: No When Did the Patient Quit Smoking/Using Tobacco: 30 yrs ago - Immunization History Most Recent Influenza Vaccination: 2016 Most Recent Pneumonia Vaccination: apr 2016 Review of Systems All Other Systems Reviewed And Are Negative: Yes Constitutional: Positive: Negative Skin: Positive: Other - SEE HPI ENT: Positive: Negative Respiratory: Positive: Negative Cardiovascular: Positive: Negative Gastrointestinal: Positive: Negative Motor: Positive: Negative Neurovascular: Positive: Negative Musculoskeletal: Positive: Negative Neurological: Positive: Negative Psychological: Positive: Negative Is Patient Immunocompromised?: No Physical Exam Triage Information Reviewed: Yes Appearance: Well-Appearing, No Pain Distress, Well-Nourished Vital Signs: Initial Vital Signs Temp 97.6 F 07/28/18 17:45 Pulse 68 07/28/18 17:45 Resp 20 07/28/18 17:45 BP 139/64 07/28/18 17:45 Pulse Ox 100 07/28/18 17:45 Vital Signs Reviewed: Yes Eye Exam: Normal Eyes: Positive: Conjunctiva Clear Neck: Positive: Supple Respiratory: Positive: No respiratory distress Musculoskeletal Exam: Normal Musculoskeletal: Positive: Strength Intact, ROM Intact Neurological Exam: Normal Neurological: Positive: Alert, Muscle Tone Normal Psychological Exam: Normal Psychological: Positive: Normal Response To Family, Age Appropriate Behavior Skin: Positive: Other - LEFT PALM HEALING SURGICAL INCISION 3CM. NO STRAKING OR DRAINAGE AT THIS TIME. THERE IS A SCAB. MOST OF THE SUTURES ARE INGROWN AND NOT COMPLETELY VISIBLE. I REMOVED 8 SUTURES. Course/Dx - Course Course Of Treatment: BECAUSE OF THE HISTORY OF PUS DRAINAGE; RX KEFLEX (WHICH THE PATIENT REPORTS SHE HAS TAKEN WITHOUT ANY PROBLEMS IN THE PAST). F/U SCHEDULED WITH ORTHOPEDICS. DISCUSSED REEVALUATION SOONER IF WORSE. - Diagnoses Provider Diagnosis: Encounter for removal of sutures Discharge - Sign-Out/Discharge Documenting (check all that apply): Patient Departure All imaging exams completed and their final reports reviewed: Yes - Discharge Plan Condition: Stable Disposition: HOME Prescriptions: Cephalexin CAP* [Keflex CAP*] 500 mg PO TID #21 cap Patient Education Materials: Stitches Removal (ED) Referrals: Trip Castillo MD [Primary Care Provider] - Additional Instructions: FOLLOW UP WITH DOCTOR AUSTIN, ORTHOPEDICS. GET RECHECKED SOONER IF YOUR CONDITION WORSENS; SIGNS OF INFECTION OR ANY QUESTIONS OR CONCERNS. - Billing Disposition and Condition Condition: STABLE Disposition: Home
== END 2018-07-28 18:42 | disposition home or self-care (01) ==
LOC: UCEAST 17:24
DX: Z48.02 Encounter for removal of sutures (principal); R23.8 Other skin changes; I10 Essential (primary) hypertension; Z88.8 Allergy status to other drugs, medicaments and biological substances; Z88.0 Allergy status to penicillin; Z88.5 Allergy status to narcotic agent; Z91.09 Other allergy status, other than to drugs and biological substances; Z91.018 Allergy to other foods; E11.9 Type 2 diabetes mellitus without complications; Z87.891 Personal history of nicotine dependence
CPT/HCPCS: 99212; G0463

== ENCOUNTER 2018-12-18 09:14 | Emergency (ER) | payer MEDICARE, OTHER ==
[2018-12-18] MEDS ORDERED: HYDROcodone/ACETAMIN 5-325 MG* 1 TAB PO ONE (09:54)
--- NOTE | 2018-12-18 09:56 | ED ---
Lower Extremity - HPI Summary HPI Summary: Patient is a 63-year-old female who presents emergency department for left foot injury that occurred last night. Patient states she was taking her dog outside when the dog pulled the leash and patient's foot twisted on the sidewalk. No head injury or loss of consciousness. Patient unable to ambulate secondary to left foot pain today. Symptoms are mild in severity. - History of Current Complaint Chief Complaint: EDExtremityLower Stated Complaint: LEFT FOOT/LEG INJ AFTER FALL PER PT Time Seen by Provider: 12/18/18 09:27 Hx Obtained From: Patient Hx Last Menstrual Period: post menopause Pain Intensity: 10 - Allergies/Home Medications Allergies/Adverse Reactions: Allergies Allergy/AdvReac Type Severity Reaction Status Date / Time acetaminophen Allergy Nausea Verified 12/18/18 09:43 adhesive tape Allergy Rash And Verified 12/18/18 09:43 Itching amoxicillin Allergy GI Upset Verified 12/18/18 09:43 clavulanic acid Allergy GI Upset Verified 12/18/18 09:43 [From Augmentin] latex Allergy ITCHINESS Verified 12/18/18 09:43 oxycodone Allergy Hallucinati Verified 12/18/18 09:43 ons Perfume [Fragrance] Allergy ASTHMA Verified 12/18/18 09:43 red yeast rice Allergy Unknown Verified 12/18/18 09:43 Reaction Details Znygotr-Tas-Rjh Reductase Allergy Muscle Ache Verified 12/18/18 09:43 Inhibitor ticagrelor [From Brilinta] Allergy DIFFICULTY Verified 12/18/18 09:43 WITH BREATHING PMH/Surg Hx/FS Hx/Imm Hx Previously Healthy: Yes Endocrine/Hematology History: Reports: Hx Anticoagulant Therapy - ASA 81 mg qd, Hx Diabetes - TYPE I- INSULIN PUMP AND ORAL MEDICATION FOR//TESTS BLOOD SUGAR Q2HOUR, Hx Anemia - HX OF- Denies: Hx Thyroid Disease Cardiovascular History: Reports: Hx Angina - NITRO PATCH AND PRN NITRO TABLETS, Hx Coronary Artery Disease, Hx Hypercholesterolemia, Hx Hypertension - ON MEDICATION FOR, Other Cardiovascular Problems/Disorders - DR. FELIZ FROM [place] Denies: Hx Myocardial Infarction, Hx Pacemaker/ICD, Hx Valvular Heart Disease Respiratory History: Reports: Hx Asthma, Hx Chronic Bronchitis, Hx Sleep Apnea, Other Respiratory Problems/Disorders - FLU 3 WEEKS AGO Denies: Hx Chronic Obstructive Pulmonary Disease (COPD) GI History: Reports: Hx Gastroesophageal Reflux Disease - ON ROUTINE MEDICATION FOR, Hx Hiatal Hernia, Other GI Disorders - HX OF DIVERTICULOSIS 10 YEARS AGO History: Denies: Hx Renal Disease Musculoskeletal History: Reports: Hx Arthritis - RHEUMATOID, Hx Bursitis - right shoulder, Hx Fibromyalgia, Hx Tendonitis - AT TIMES TO THE RIGHT HAND, Other Musculoskeletal History - fibromyalgia Sensory History: Reports: Hx Cataracts - LEFT EYE, Hx Contacts or Glasses - GLASSES Denies: Hx Hearing Aid Opthamlomology History: Reports: Hx Cataracts - LEFT EYE, Hx Contacts or Glasses - GLASSES Neurological History: Reports: Hx Headaches, Hx Migraine - HX OF- NONE IN RECENT YEARS Denies: Hx Dementia, Hx Seizures, Other Neuro Impairments/Disorders Psychiatric History: Reports: Hx Anxiety - ROUTINE AND PRN MEDICATION FOR, Hx Depression - ROUTINE AND PRN MEDICATION FOR, Hx Post Traumatic Stress Disorder Denies: Hx Panic Disorder, Hx Substance Abuse - Surgical History Surgery Procedure, Year, and Place: CARPAL TUNNEL - DOROTHY. C4-5 DISCETOMY. HYSTERECTOMY-APENDECTOMY. TUBAL LIGATION 1977. C SECTION 1976. CONTRACTURE- HAND- Rt. LT KNEE - ARTHROSCOPIC. Lt SHOULDER. GALLBLADDER REMOVED. trigger finger 2018 Hx Anesthesia Reactions: No - Immunization History Date of Tetanus Vaccine: UNK Date of Influenza Vaccine: Fall 2011 Infectious Disease History: No Infectious Disease History: Reports: Hx Hepatitis - unsure, Hx of Known/ Suspected MRSA Denies: Hx Human Immunodeficiency Virus (HIV), Traveled Outside the in Last 30 Days - Family History Known Family History: Positive: Cardiac Disease, Hypertension, Non-Contributory - Social History Occupation: Retired Lives: With Family Alcohol Use: Rare Alcohol Amount: 1 per month Substance Use Type: Reports: None Hx Tobacco Use: Yes Smoking Status (MU): Former Smoker Type: Cigarettes Amount Used/How Often: pack a day for 17 yrs Have You Smoked in the Last Year: No Review of Systems Positive: Other - left foot and ankle pain Positive: Bruising Neurological: Negative Negative: Weakness, Paresthesia, Numbness All Other Systems Reviewed And Are Negative: Yes Physical Exam Triage Information Reviewed: Yes Vital Signs On Initial Exam: Initial Vitals Temp Pulse Resp BP Pulse Ox 97.5 F 67 16 136/66 95 12/18/18 09:15 12/18/18 09:15 12/18/18 09:15 12/18/18 09:15 12/18/18 09:15 Vital Signs Reviewed: Yes Appearance: Positive: Well-Appearing - Patient lying in bed in no acute distress. present. Skin: Positive: Warm, Dry Head/Face: Positive: Normal Head/Face Inspection Eyes: Positive: Normal, EOMI Neck: Positive: Supple Musculoskeletal: Positive: Other - Moderate edema and ecchymosis to the lateral left foot and lateral malleolus. Mild proximal knee pain. Good pedal pulse. No breaks in the skin. Numerous areas of superficial ecchymosis to bilateral lower extremities. Neurological: Positive: Normal, CN Intact II-III Psychiatric: Positive: Affect/Mood Appropriate Procedures - Sedation Patient Received Moderate/Deep Sedation with Procedure: No - Splinting Lower Extremity Hand-Made Type: orthoglass Pre-Proc Neuro Vasc Exam: normal Post-Proc Neuro Vasc Exam: normal Splint Applied by Provider: [facility] - Vital Signs Vital Signs Temp Pulse Resp BP Pulse Ox 12/18/18 09:15 97.5 F 67 16 136/66 95 - Laboratory Lab Statement: Any lab studies that have been ordered have been reviewed, and results considered in the medical decision making process. Lower Extremity Course/Dx - Course Assessment/Plan: X-ray shows nondisplaced fracture at the base of the fifth metatarsal. Posterior splint was placed. Patient would like to get a walker and declines crutches at this time. Advised nonweightbearing. Patient to call orthopedic clinic today for close follow-up. Ice and elevate intermittently. Patient is prescribed hydrocodone and Ultram at home she can continue as directed for pain control. Patient understands and agrees with plan. - Diagnoses Differential Diagnosis/HQI/PQRI: Positive: Fracture (Closed), Sprain, Strain Provider Diagnoses: Metatarsal fracture Discharge ED - Sign-Out/Discharge Documenting (check all that apply): Patient Departure - Discharge Plan Condition: Good Disposition: HOME Patient Education Materials: Foot Fracture in Adults (ED) Referrals: Trip Castillo MD [Primary Care Provider] - Andriy Ball MD [Medical Doctor] - Additional Instructions: Call the orthopedic clinic today to schedule a close follow up appointment Keep splint in place Use crutches Ice and elevate intermittently Can continue home pain medication - Billing Disposition and Condition Condition: GOOD Disposition: Home
[2018-12-18 11:18] VITALS: BP 136/60
== END 2018-12-18 11:17 | disposition home or self-care (01) ==
LOC: ED 09:14
DX: S92.355A Nondisplaced fracture of fifth metatarsal bone, left foot, initial encounter for closed fracture (principal); X50.0XXA Overexertion from strenuous movement or load, initial encounter; Y93.K1 Activity, walking an animal; Y92.480 Sidewalk as the place of occurrence of the external cause; M17.12 Unilateral primary osteoarthritis, left knee; M19.072 Primary osteoarthritis, left ankle and foot; I73.9 Peripheral vascular disease, unspecified; E10.9 Type 1 diabetes mellitus without complications; D64.9 Anemia, unspecified; I25.10 Atherosclerotic heart disease of native coronary artery without angina pectoris; E78.00 Pure hypercholesterolemia, unspecified; I10 Essential (primary) hypertension; K21.9 Gastro-esophageal reflux disease without esophagitis; F41.9 Anxiety disorder, unspecified; F32.9 Major depressive disorder, single episode, unspecified; F43.10 Post-traumatic stress disorder, unspecified; Z96.41 Presence of insulin pump (external) (internal); Z90.710 Acquired absence of both cervix and uterus; Z90.49 Acquired absence of other specified parts of digestive tract; Z87.891 Personal history of nicotine dependence; Z79.4 Long term (current) use of insulin; Z79.82 Long term (current) use of aspirin; Z79.899 Other long term (current) drug therapy; Z88.5 Allergy status to narcotic agent; Z88.0 Allergy status to penicillin; Z88.8 Allergy status to other drugs, medicaments and biological substances; Z88.6 Allergy status to analgesic agent; Z88.1 Allergy status to other antibiotic agents; Z91.040 Latex allergy status
CPT/HCPCS: 99282